=== PATIENT | female | born 1950 | race Two or more races ===

== ENCOUNTER 2017-08-28 14:12 | Inpatient (IN) | payer OTHER, MEDICARE ==
[~2017-08-28] VITALS: Ht 152.4 cm; Wt 89.9 kg
[~2017-08-28 14:12] MED LIST: ASPI81CH7 CHEW; CIPR-9 PO; FURO1TAB62 PO; GABA300C5 PO; HYDR-3516 PO; LEVO150T7 PO; LOSA50TA PO; METO100T9 PO; ZANT150T2 PO
[2017-08-28] MEDS ORDERED: NALOXONE HCL 0.4 MG/ML AMP IV PUSH PRN ×2 (14:45)
[2017-08-28] MEDS ORDERED: cloNIDine HCL 0.1 MG TAB PO PRN ×2 (14:45)
[2017-08-28] MEDS ORDERED: DEXTROSE 50% IN WATER 50 ML VIAL(D50) IV PUSH PRN (14:45)
[2017-08-28] MEDS ORDERED: ACETAMINOPHEN/HYDROcodone 325 MG/5 MG TAB PO PRN ×2 (14:45)
[2017-08-28] MEDS ORDERED: BISACODYL 10 MG SUPP RECTAL PRN ×2 (14:45)
[2017-08-28] MEDS ORDERED: SODIUM CHLORIDE 0.9% FLUSH 10 ML FLUSH IV FLUSH PRN ×2 (14:45)
[2017-08-28] MEDS ORDERED: MORPHINE SULFATE 4 MG/ML INJ IV PUSH PRN ×2 (14:45)
[2017-08-28] MEDS ORDERED: ENOXAPARIN SODIUM 40 MG/0.4 ML SYRINGE SQ SCH ×2 (14:45)
[2017-08-28] MEDS ORDERED: GLUCAGON 1 MG/ML VIAL OTHER PRN ×2 (14:45)
[2017-08-28] MEDS ORDERED: MAGNESIUM HYDROXIDE SUSP 30 ML CUP PO PRN ×2 (14:45)
[2017-08-28] MEDS ORDERED: ACETAMINOPHEN 325 MG TAB PO PRN ×4 (14:45)
[2017-08-28] MEDS ORDERED: ENALAPRILAT 1.25 MG/ML VIAL IV PUSH PRN ×2 (14:45)
[2017-08-28] MEDS ORDERED: hydrALAZINE HCL 20 MG/ML VIAL IV PUSH PRN ×2 (14:45)
[2017-08-28] MEDS ORDERED: SENNOSIDES 8.6 MG TAB PO PRN ×2 (14:45)
[2017-08-28] MEDS ORDERED: LACTULOSE SYRUP 20 GM/30 ML CUP PO PRN ×2 (14:45)
[2017-08-28] MEDS: INSULIN ASPART SUPPLEMENTAL SCALE SQ SCH ×4 (17:00→21:00)
[2017-08-28 17:05] VITALS: BP 118/58; PULSE 90; RESP 18; TEMP 97.9; O2SAT 91
[2017-08-28] MEDS ORDERED: ENOXAPARIN SODIUM 100 MG/ML SYRINGE SQ ONE ×2 (18:30)
--- NOTE | 2017-08-28 18:45 | HHI.HP ---
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 She presents to the emergency department complaining of severe retrosternal pressure since last night radiating to the left upper extremity intermittently associated with shortness of breath and diaphoresis. Also noted irregular heartbeat sensation/ palpitations for the past 2 days. Pain is related to exertion as well as pleuritic with deep inspiration. Symptoms similar to her previous heart attack. States she had a cardiac catheterization a while ago did not have a stent. Patient reports of temporary relief with aspirin, sublingual nitroglycerin and IV morphine states her pain is improving but continues to have palpitation. Telemetry shows sinus tachycardia with PAC. Patient also reports of left ankle swelling and bilateral leg pain. No recent travel, immobilization, DVT or PE. All other systems reviewed negative Review of Systems Except as stated in HPI: all other systems reviewed are Neg Past Family Social History Past Medical History As previously mentioned. Thyroid cancer status post surgery now on thyroid replacement. Past Surgical History As previously mentioned. Hysterectomy Reported Medications Reported Meds & Active Scripts Active Reported Cipro (Ciprofloxacin HCl) 500 Mg Tab 500 Mg PO BID Gabapentin 300 Mg Cap 300 Mg PO DAILY PRN Losartan (Losartan Potassium) Unknown Strength Tab Unknown Dose PO DAILY Lasix (Furosemide) 20 Mg Tab 20 Mg PO DAILY Zantac (Ranitidine HCl) 150 Mg Tab 150 Mg PO HS Metoprolol Succinate ER 24 HR (Metoprolol Succinate) 100 Mg Tab 100 Mg PO DAILY Hydrocodone-Acetaminophen 5-325 mg Tab 1 Tab PO DAILY Levothyroxine (Levothyroxine Sodium) 150 Mcg Tab 150 Mcg PO DAILY Aspirin Children's (Aspirin) 81 Mg Chew 81 Mg CHEW DAILY Allergies: Coded Allergies: albuterol (Verified Allergy, Intermediate, Hives; rapid heart rate, ) Family History She is adopted Social History Does not smoke or drink Physical Exam Vital Signs Blood pressure 129/77 heart rate 95 respiratory 18 oxygen saturation 97% on room air temperature 97.9 Physical Exam GENERAL: This is a well-nourished, well-developed patient, in no apparent distress. SKIN: No rashes, ecchymoses or lesions. Cool and dry. Abrasions in the chin area states it's from her nerves HEAD: Atraumatic. Normocephalic. No temporal or scalp tenderness. EYES: Pupils equal round and reactive. Extraocular motions intact. No scleral icterus. No injection or drainage. ENT: Nose without bleeding, purulent drainage or septal hematoma. Throat without erythema, tonsillar hypertrophy or exudate. Uvula midline. Airway patent. NECK: Trachea midline. No JVD or lymphadenopathy. Supple, nontender, no meningeal signs. CARDIOVASCULAR: Regular rate and rhythm without murmurs, gallops, or rubs. Tender chest wall RESPIRATORY: Clear to auscultation. Breath sounds equal bilaterally. No wheezes , rales, or rhonchi. GASTROINTESTINAL: Abdomen soft, non-tender, nondistended. No guarding. MUSCULOSKELETAL: Extremities without clubbing, cyanosis, or edema. No joint tenderness, effusion, or edema noted. No calf tenderness. Negative Homans sign bilaterally. NEUROLOGICAL: Awake and alert. Cranial nerves II through XII intact. Motor and sensory grossly within normal limits. Five out of 5 muscle strength in all muscle groups. Normal speech. Imaging Chest x-ray image interpreted by me with no acute cardiopulmonary disease Caprini VTE Risk Assessment Caprini VTE Risk Assessment: Mod/High Risk (score >= 2) Caprini Risk Assessment Model Point Value = 1 Point Value = 2 Point Value = 3 Point Value = 5 Age 41-60 Minor surgery BMI > 25 kg/m2 Swollen legs Varicose veins or History of unexplained or recurrent spontaneous Oral contraceptives or hormone replacement Sepsis (< 1 month) Serious lung disease, including pneumonia (< 1 month) Abnormal pulmonary function Acute myocardial infarction Congestive heart failure (< 1 month) History of inflammatory bowel disease Medical patient at bed rest Age 61-74 Arthroscopic surgery Major open surgery (> 45 min) Laparoscopic surgery (> 45 min) Malignancy Confined to bed (> 72 hours) Immobilizing plaster cast Central venous access Age >= 75 History of VTE Family history of VTE Factor V Leiden Prothrombin [id number] Lupus anticoagulant Anticardiolipin antibodies Elevated serum homocysteine Heparin-induced thrombocytopenia Other congenital or acquired thrombophilia Stroke (< 1 month) Elective arthroplasty Hip, pelvis, or leg fracture Acute spinal cord injury (< 1 month) Prophylaxis Regimen Total Risk Factor Score Risk Level Prophylaxis Regimen 0-1 Low Early ambulation 2 Moderate Order ONE of the following: *Sequential Compression Device (SCD) *Heparin 5000 units SQ BID 3-4 Higher Order ONE of the following medications: *Heparin 5000 units SQ TID *Enoxaparin/Lovenox 40 mg SQ daily (WT < 150 kg, CrCl > 30 mL/min) *Enoxaparin/Lovenox 30 mg SQ daily (WT < 150 kg, CrCl > 10-29 mL/min) *Enoxaparin/Lovenox 30 mg SQ BID (WT < 150 kg, CrCl > 30 mL/min) AND/OR *Sequential Compression Device (SCD) 5 or more Highest Order ONE of the following medications: *Heparin 5000 units SQ TID (Preferred with Epidurals) *Enoxaparin/Lovenox 40 mg SQ daily (WT < 150 kg, CrCl > 30 mL/min) *Enoxaparin/Lovenox 30 mg SQ daily (WT < 150 kg, CrCl > 10-29 mL/min) *Enoxaparin/Lovenox 30 mg SQ BID (WT < 150 kg, CrCl > 30 mL/min) AND *Sequential Compression Device (SCD) Assessment and Plan Problem List: (1) Chest pain ICD Code: R07.9 - Chest pain, unspecified Assessment and Plan 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 She presents to the emergency department complaining of severe retrosternal pressure since last night radiating to the left upper extremity intermittently associated with shortness of breath and diaphoresis. Also noted irregular heartbeat sensation/ palpitations for the past 2 days. Symptoms similar to her previous heart attack. States she had a cardiac catheterization a while ago did not have a stent. Patient reports of temporary relief with aspirin, sublingual nitroglycerin and IV morphine states her pain is improving but continues to have palpitation. Telemetry shows sinus tachycardia with PAC. Patient also reports of left ankle swelling and bilateral leg pain. No recent travel, immobilization, DVT or PE. CP and SOB with history of CAD status post [place]. Initial cardiac enzymes unremarkable. EKG is abnormal interpreted by me as sinus tachycardia with probable progression and recurrent PVC. Monitor on telemetry. Trend cardiac enzymes. Continue aspirin, Toprol, sublingual nitroglycerin, Lortab and IV morphine. Also need to rule out for PE. CTA has been ordered. Lovenox therapeutic dose 1 Leg ankle swelling and bilateral leg pain. Obtain Doppler sonogram of the lower extremities UTI which is currently being treated. Continue ciprofloxacin Diabetes mellitus. Monitor fingersticks and sliding scale coverage DVT prophylaxis with Lovenox. Hold mechanical devices pending Doppler sonogram Discussed Condition With Patient Russ Edwards MD Aug 28, 2017 18:45
[2017-08-28 20:00] VITALS: BP 107/59; PULSE 65; RESP 20; TEMP 97.9; O2SAT 96
[2017-08-28 20:15] VITALS: PULSE 85
[2017-08-28] MEDS ORDERED: IOHEXOL 350 MG/ML 10 ML VIAL (for RAD DIAG) IVCONTRAST ONE ×2 (21:31)
--- NOTE | 2017-08-28 21:41 | RADRPT ---
EXAM DATE/TIME: 08/28/2017 20:03 [facility] COMPARISON: No previous studies available for comparison. INDICATIONS : Bilateral leg pain. MEDICAL HISTORY : Carcinoma, thyroid. Hypercholesterolemia. Chronic obstructive pulmonary disease. Diabetes. CVA. Atria l fibrillation. Myocardial infarction. SURGICAL HISTORY : Hysterectomy.Thyroidectomy. ENCOUNTER: Initial ACUITY: 1 day PAIN SCORE: 3/10 LOCATION: Bilateral legs. TECHNIQUE: Venous ultrasound of the left and right leg was performed from the inguinal ligament to the proximal calf. Real-time, color Doppler and spectral tracing, compression and augmentation techniques were us ed. FINDINGS: RIGHT LEG: There is normal compressibility of the deep venous system from the inguinal region to the proximal ca lf. No echogenic clot is seen in the lumen of the common femoral, femoral, popliteal, and posterior tibial veins. There is a normal response of the venous system to proximal and distal augmentation an d respiration. LEFT LEG: There is normal compressibility of the deep venous system from the inguinal region to the proximal ca lf. No echogenic clot is seen in the lumen of the common femoral, femoral, popliteal, and posterior tibial veins. There is a normal response of the venous system to proximal and distal augmentation an d respiration. CONCLUSION: Negative for deep venous thrombosis bilateral lower extremity. Yunior Cruz MD on August 28, 2017 at 21:39 Board Certified Radiologist. This report was verified electronically.
[2017-08-28] MEDS: SODIUM CHLORIDE 0.9% FLUSH 10 ML FLUSH IV FLUSH SCH ×2 (21:45)
[2017-08-28] MEDS: DOCUSATE SODIUM 50 MG/SENNA 8.6 MG TAB PO SCH ×2 (21:45)
[2017-08-28] MEDS: FAMOTIDINE 20 MG TAB PO SCH ×2 (21:45)
[2017-08-28] MEDS: CIPROFLOXACIN 500 MG TAB PO SCH ×2 (21:45)
--- NOTE | 2017-08-28 21:45 | RADRPT ---
EXAM DATE/TIME: 08/28/2017 21:29 [facility] COMPARISON: No previous studies available for comparison. INDICATIONS : Shortness of breath with chest pain. IV CONTRAST: 74 cc Omnipaque 350 (iohexol) IV RADIATION DOSE: 23.11 CTDIvol (mGy) MEDICAL HISTORY : Cardiovascular disease. Diabetes mellitus type 2. Ovarian cancer. Thyroid cancer. CVA. SURGICAL HISTORY : Hysterectomy. ENCOUNTER: Initial ACUITY: 1 day PAIN SCALE: 5/10 LOCATION: Bilateral chest TECHNIQUE: Volumetric scanning of the chest was performed using a pulmonary embolism protocol MIP images were re constructed. Using automated exposure control and adjustment of the mA and/or kV according to patien t size, radiation dose was kept as low as reasonably achievable to obtain optimal diagnostic quality images. DICOM format image data is available electronically for review and comparison. Follow-up recommendations for detected pulmonary nodules are based at a minimum on nodule size and pa tient risk factors according to Fleischner Society Guidelines. FINDINGS: PULMONARY ARTERIES: No filling defects are seen in the pulmonary arteries through the segmental level. LUNGS: There is no consolidation or pneumothorax . No concerning pulmonary nodule is visualized. PLEURAE: There is no pleural thickening or pleural effusion. MEDIASTINUM: There is good visualization of the great vessels of the middle mediastinum. No evidence of mediastin al or hilar adenopathy/mass. CONCLUSION: The study is negative for pulmonary embolism. Yunior Cruz MD on August 28, 2017 at 21:42 Board Certified Radiologist. This report was verified electronically.
[2017-08-28] MEDS: NITROGLYCERIN 0.4 MG SL 25 TABS/BTL SL PRN ×2 (21:51)
[2017-08-28 22:02] VITALS: BP 111/57; PULSE 69; O2SAT 93
[2017-08-29] VITALS (9 sets, daily range): BP systolic 113–150; BP diastolic 55–75; PULSE 66–100; RESP 18–20; TEMP 97.6–98.2; O2SAT 90–96
[2017-08-29] MEDS ORDERED: diphenhydrAMINE HCL 25 MG CAP PO ONE ×2 (00:30)
[2017-08-29] MEDS: ACETAMINOPHEN/HYDROcodone 325 MG/7.5 MG TAB PO PRN ×4 (00:56→21:27)
[2017-08-29 01:13] LABS: TROPONIN I LESS THAN 0.02 NG/ML (0.02-0.05)
[2017-08-29] MEDS: NITROGLYCERIN 0.4 MG SL 25 TABS/BTL SL PRN ×2 (01:50)
[2017-08-29 07:35] LABS: BICARBONATE 27.5 MEQ/L (21.0-32.0); BLOOD UREA NITROGEN 24 MG/DL (7-18); CHLORIDE 101 MEQ/L (98-107); CREATININE 1.18 MG/DL (0.50-1.00); GLOMERULAR FILTRATION RATE 46 ML/MIN (>89); GLUCOSE,RANDOM 97 MG/DL (74-106); MAGNESIUM 2.2 MG/DL (1.5-2.5); SODIUM (NA) 138 MEQ/L (136-145)
[2017-08-29 07:39] LABS: TROPONIN I LESS THAN 0.02 NG/ML (0.02-0.05)
[2017-08-29] MEDS ORDERED: SODIUM CHLOR 0.9% 1000 ML INJ 1,000 ML IV ONE ×2 (08:00)
[2017-08-29] MEDS: INSULIN ASPART SUPPLEMENTAL SCALE SQ SCH ×8 (08:00→21:00)
[2017-08-29] MEDS: DOCUSATE SODIUM 50 MG/SENNA 8.6 MG TAB PO SCH ×4 (09:00→21:00)
[2017-08-29] MEDS: CIPROFLOXACIN 500 MG TAB PO SCH ×4 (09:24→21:23)
[2017-08-29] MEDS: HEPARIN SODIUM - SQ 10,000 UNITS/ML VIAL SQ SCH ×4 (09:24→21:23)
[2017-08-29] MEDS: ASPIRIN 325 MG TAB PO SCH ×2 (09:24)
[2017-08-29] MEDS: LEVOTHYROXINE SODIUM 150 MCG TAB PO SCH ×2 (09:25)
[2017-08-29] MEDS: METOPROLOL SUCCINATE 50 MG EXTENDED RELEASE TAB PO SCH ×2 (09:31)
[2017-08-29] MEDS: SODIUM CHLORIDE 0.9% FLUSH 10 ML FLUSH IV FLUSH SCH ×4 (09:34→21:00)
[2017-08-29] MEDS ORDERED: REGADENOSON INJ 0.4 MG/5 ML SYR ONE ×2 (11:58)
--- NOTE | 2017-08-29 12:40 | EKG ---
Date Performed: 08/28/2017 Time Performed: 18:54:30 PTAGE: 67 years EKG: Sinus rhythm WITH SHORT ND INTERVAL WITH nonconducted PACs and conducted PACs NONSPECIFIC ST & T-WAVE ABNORMALITY BORDERLINE ECG NO PREVIOUS TRACING DOCTOR: Get Jessica Interpretating Date/Time 08/29/2017 12:38:21
--- NOTE | 2017-08-29 12:40 | EKG ---
Date Performed: 08/28/2017 Time Performed: 18:54:30 PTAGE: 67 years EKG: Sinus rhythm WITH SHORT [place] INTERVAL WITH nonconducted PACs and conducted PACs NONSPECIFIC ST & T-WAVE ABNORMALITY BORDERLINE ECG NO PREVIOUS TRACING DOCTOR: Get Jessica Interpretating Date/Time 08/29/2017 12:38:21
--- NOTE | 2017-08-29 12:40 | EKG ---
Date Performed: 08/28/2017 Time Performed: 18:54:30 PTAGE: 67 years EKG: Sinus rhythm WITH SHORT NC INTERVAL WITH nonconducted PACs and conducted PACs NONSPECIFIC ST & T-WAVE ABNORMALITY BORDERLINE ECG NO PREVIOUS TRACING DOCTOR: Get Jessica Interpretating Date/Time 08/29/2017 12:38:21
--- NOTE | 2017-08-29 12:42 | EKG ---
Date Performed: 08/29/2017 Time Performed: 01:04:50 PTAGE: 67 years EKG: Sinus rhythm with PAC(s) as well as nonconducted PACs Possible anterior infarct - age undetermined Abnormal ECG PREVIOUS TRACING : 08/28/2017 18.54 Compared to prior tracing no significant change DOCTOR: Get Jessica Interpretating Date/Time 08/29/2017 12:40:19
--- NOTE | 2017-08-29 13:32 | RADRPT ---
EXAM DATE/TIME: 08/29/2017 10:49 [facility] COMPARISON: No previous studies available for comparison. INDICATIONS : Mid chest pain for one day. Coronary artery disease. DOSE: 25.9 mCi Tc99m Myoview at stress. 8.8 mCi Tc99m Myoview at rest. 0.4 mg Lexiscan STRESS SYMPTOMS: Chest pressure. EJECTION FRACTION: 49% MEDICAL HISTORY : Hypertension. Chronic obstructive pulmonary disease. Myocardial infarction. SURGICAL HISTORY : Thyroidectomy. Hysterectomy. ENCOUNTER: Initial ACUITY: 1 day PAIN SCALE: 2/10 LOCATION: Retrosternal chest pressure TECHNIQUE: The patient underwent pharmacologic stress with infusion of prescribed dose. Continuous ECG tracing was monitored during stress. Gated SPECT imaging was performed after stress and conventional SPECT i maging was performed at rest. The examination was performed on a SPECT/CT scanner, both attenuation and non-corrected datasets were reviewed. FINDINGS: There is minimal redistribution small segment inferior wall towards the apex. There are no fixed defects. The ejection fraction is 49% CONCLUSION: Minimal redistribution small segment inferior wall correlation suggested. RISK CATEGORY: Low (<1% Annual Mortality Rate) Adan Parsons MD FACR on August 29, 2017 at 13:28 Board Certified Radiologist. This report was verified electronically.
--- NOTE | 2017-08-29 13:32 | HHI.PR ---
Subjective Remarks Follow-up chest pain. Continues to have intermittent chest pain. Also admits to anxiety and discussed with RN Objective Vitals Vital Signs Date Time Temp Pulse Resp B/P (MAP) Pulse Ox O2 Delivery O2 Flow Rate FiO2 08/29/17 12:00 97.9 67 18 150/74 (99) 90 08/29/17 08:00 97.7 76 18 122/59 (80) 93 08/29/17 08:00 66 08/29/17 07:00 93 Room Air 08/29/17 04:54 94 08/29/17 04:00 97.6 72 20 125/58 (80) 96 08/29/17 01:49 71 115/62 (79) 94 08/29/17 00:00 98.1 90 20 137/60 (85) 94 08/28/17 22:02 69 111/57 (75) 93 08/28/17 20:45 Room Air 08/28/17 20:15 85 08/28/17 20:00 97.9 65 20 107/59 (75) 96 08/28/17 17:05 97.9 90 18 118/58 (78) 91 I/O 08/28/17 08/28/17 08/28/17 08/29/17 08/29/17 08/29/17 07:00 15:00 23:00 07:00 15:00 23:00 Intake Total 240 ml Balance 240 ml Intake Oral 240 ml # Voids 2 Result Diagram: 08/29/17 0601 Imaging Last Impressions Myocardial Perfusion Scan Nuc Med 08/29/17 0000 Signed Impressions: Service Date/Time: Tuesday, August 29, 2017 10:49 - CONCLUSION: Minimal redistribution small segment inferior wall correlation suggested. RISK CATEGORY: Low (<1%% Annual Mortality Rate) Adan Parsons MD FACR Lower Extremity Ultrasound 08/28/17 0000 Signed Impressions: Service Date/Time: Monday, August 28, 2017 20:03 - CONCLUSION: Negative for deep venous thrombosis bilateral lower extremity. Yunior Cruz MD CT Angiography 08/28/17 0000 Signed Impressions: Service Date/Time: Monday, August 28, 2017 21:29 - CONCLUSION: The study is negative for pulmonary embolism. Yunior Cruz MD Objective Remarks GENERAL: This is a well-nourished, well-developed patient, in no apparent distress. SKIN: No rashes, ecchymoses or lesions. Cool and dry. Abrasions in the chin area states it's from her nerves CARDIOVASCULAR: Regular rate and rhythm without murmurs, gallops, or rubs. Tender chest wall RESPIRATORY: Clear to auscultation. Breath sounds equal bilaterally. No wheezes , rales, or rhonchi. GASTROINTESTINAL: Abdomen soft, non-tender, nondistended. No guarding. MUSCULOSKELETAL: Extremities without clubbing, cyanosis, or edema. No joint tenderness, effusion, or edema noted. No calf tenderness. Negative Homans sign bilaterally. NEUROLOGICAL: Awake and alert. Cranial nerves II through XII intact. Motor and sensory grossly within normal limits. Five out of 5 muscle strength in all muscle groups. Normal speech. 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 She presents to the emergency department complaining of severe retrosternal pressure since last night radiating to the left upper extremity intermittently associated with shortness of breath and diaphoresis. Also noted irregular heartbeat sensation/ palpitations for the past 2 days. Symptoms similar to her previous heart attack. States she had a cardiac catheterization a while ago did not have a stent. Patient reports of temporary relief with aspirin, sublingual nitroglycerin and IV morphine states her pain is improving but continues to have palpitation. Telemetry shows sinus tachycardia with PAC. Patient also reports of left ankle swelling and bilateral leg pain. No recent travel, immobilization, DVT or PE. CP with typical and atypical features with history of CAD status post [place]. Ruled out for [place] by cardiac enzymes for EKG is abnormal interpreted by me as sinus tachycardia with poor R-wave progression and frequent PVC. Stress test is abnormal as noted. Continues to have chest pain start Nitropaste. Continue aspirin, Toprol, sublingual nitroglycerin, Lortab and IV morphine. Consult cardiology Leg ankle swelling and bilateral leg pain. Negative Doppler sonogram of the lower extremities for DVT. Also negative CTA Anxiety. Start BuSpar. UTI which is currently being treated. Continue ciprofloxacin Diabetes mellitus. Monitor fingersticks and sliding scale coverage DVT prophylaxis with Lovenox. Russ Edwards MD Aug 29, 2017 13:32
[2017-08-29] MEDS ORDERED: FAMO20TA2 PO ×2 (13:37)
[2017-08-29] MEDS ORDERED: BUSP10TA PO ×2 (13:37)
--- NOTE | 2017-08-29 13:37 | HHI.DCPOC ---
Discharge Care Plan Diagnosis: (1) Chest pain Your Health Problems Are: Anxiety Difficulty with ADL Exercise Tolerance Goals to Promote Your Health * To prevent worsening of your condition and complications * To maintain your health at the optimal level Directions to Meet Your Goals Take your medications as prescribed Follow your dietary instruction Follow activity as directed Keep your appointments as scheduled Take your immunizations and boosters as scheduled If your symptoms worsen call your PCP, if no PCP go to Urgent Care Center or Emergency Room Smoking is Dangerous to Your Health. Avoid second hand smoke Call the 24-hour hour crisis hotline for domestic abuse at Russ Edwards MD Aug 29, 2017 13:37
--- NOTE | 2017-08-29 13:37 | HHI.DCPOC ---
Discharge Care Plan Diagnosis: (1) Chest pain Your Health Problems Are: Anxiety Difficulty with ADL Exercise Tolerance Goals to Promote Your Health * To prevent worsening of your condition and complications * To maintain your health at the optimal level Directions to Meet Your Goals Take your medications as prescribed Follow your dietary instruction Follow activity as directed Keep your appointments as scheduled Take your immunizations and boosters as scheduled If your symptoms worsen call your PCP, if no PCP go to Urgent Care Center or Emergency Room Smoking is Dangerous to Your Health. Avoid second hand smoke Call the 24-hour hour crisis hotline for domestic abuse at Russ Edwards MD Aug 29, 2017 13:37
--- NOTE | 2017-08-29 13:37 | HHI.DCPOC ---
Discharge Care Plan Diagnosis: (1) Chest pain Your Health Problems Are: Anxiety Difficulty with ADL Exercise Tolerance Goals to Promote Your Health * To prevent worsening of your condition and complications * To maintain your health at the optimal level Directions to Meet Your Goals Take your medications as prescribed Follow your dietary instruction Follow activity as directed Keep your appointments as scheduled Take your immunizations and boosters as scheduled If your symptoms worsen call your PCP, if no PCP go to Urgent Care Center or Emergency Room Smoking is Dangerous to Your Health. Avoid second hand smoke Call the 24-hour hour crisis hotline for domestic abuse at Russ Edwards MD Aug 29, 2017 13:37
[2017-08-29] MEDS: busPIRone HCL 10 MG TAB PO SCH ×4 (14:45→21:23)
--- NOTE | 2017-08-29 17:33 | ECHRPT ---
Indication: CARDIOMYOPATHY CONCLUSIONS Normal left ventricular size. Wall thickness is normal. The left ventricular systolic function is hyperdynamic with an estimated ejection fraction in the ra nge of 65- 70%. Mild mitral valve regurgitation. Mitral annular calcification is present. BP: 125 / 58 HR: Rhythm: Sinus, PVCs MEASUREMENTS (Male / Female) Normal Values Technical Quality:Fair 2D ECHO LV Diastolic Diameter PLAX 5.0 cm 4.2 - 5.9 / 3.9 - 5.3 cm LV Systolic Diameter PLAX 2.0 cm IVS Diastolic Thickness 0.7 cm 0.6 - 1.0 / 0.6 - 0.9 cm LVPW Diastolic Thickness 0.7 cm 0.6 - 1.0 / 0.6 - 0.9 cm LV Relative Wall Thickness 0.3 LVOT Diameter 1.7 cm Aortic Root Diameter 3.5 cm LA Systolic Diameter LX 3.0 cm 3.0 - 4.0 / 2.7 - 3.8 cm M-MODE AV Cusp Separation MM 2.0 cm DOPPLER AV Peak Velocity 112.0 cm/s AV Peak Gradient 5.0 mmHg AV Mean Gradient 2.5 mmHg AV Velocity Time Integral 20.4 cm Mitral E Point Velocity 97.2 cm/s Mitral A Point Velocity 123.0 cm/s Mitral E to A Ratio 0.8 LV E' Lateral Velocity 7.0 cm/s Mitral E to LV E' Lateral Ratio 13.8 LV E' Septal Velocity 7.1 cm/s Mitral E to LV E' Septal Ratio 13.7 PV Peak Velocity 56.4 cm/s PV Peak Gradient 1.3 mmHg FINDINGS LEFT VENTRICLE Normal left ventricular size. Wall thickness is normal. The left ventricular systolic function is hyperdynamic with an estimated ejection fraction in the ra nge of 65- 70%. RIGHT VENTRICLE Normal right ventricular size and systolic function. LEFT ATRIUM The left atrial size is normal. RIGHT ATRIUM The right atrial size is normal. ATRIAL SEPTUM Normal atrial septal thickness without atrial level shunting by limited color doppler interrogation. AORTA The aortic root and proximal ascending aorta are normal in size on limited imaging. MITRAL VALVE Mild mitral valve regurgitation. Mitral annular calcification is present. AORTIC VALVE Trileaflet aortic valve. No aortic valve stenosis or regurgitation. TRICUSPID VALVE Structurally normal tricuspid valve. No tricuspid valve stenosis or regurgitation. PULMONARY VALVE The pulmonary valve is not well visualized. VESSELS The inferior vena cava is normal in size. PERICARDIUM No pericardial effusion. Agustin Yanes-Chris MD (Electronically Signed) Final Date:29 August 2017 17:32
[2017-08-29] MEDS: NITROGLYCERIN 2% OINT 1 GM PACKET TOPICAL SCH ×4 (19:07→22:00)
[2017-08-29] MEDS ORDERED: TEMAZEPAM 7.5 MG CAP PO ONE ×2 (21:15)
[2017-08-29] MEDS: FAMOTIDINE 20 MG TAB PO SCH ×2 (21:23)
--- NOTE | 2017-08-29 22:29 | MB ---
cc: JENNY MARTINEZ DATE OF CONSULTATION 08/29/2017 DATE OF 1950 REASON FOR CONSULTATION Low-risk myocardial perfusion study. HISTORY OF THE PRESENT ILLNESS 67-year-old female with past medical history significant for hypertension, diabetes, COPD, rheumatoid arthritis, HI in 2005 without any intervention done, stroke in 2006 that presented to the hospital for evaluation of atypical chest pain. The patient reports that she is having constant chest discomfort with associated palpitations. The pain is related to exertion as well as exacerbated with deep inspiration. The patient had a full cardiac workup during this admission including cardiac troponins which were negative x3, and also she had a myocardial perfusion study which showed minimal distribution small segment in the inferior wall which are risk category being low. Thus cardiology has been consulted for further management and evaluation. PAST MEDICAL HISTORY 1. Cancer status post surgery. 2. Coronary artery disease. 3. Hypertension. 4. Diabetes. 5. Stroke. 6. Chronic obstructive pulmonary disease. 7. Rheumatoid arthritis. 8. Obese. PAST SURGICAL HISTORY Hysterectomy. MEDICATIONS Cardiac home medications: 1. Aspirin. 2. Lasix. 3. Losartan. 4. Metoprolol. ALLERGIES NO KNOWN DRUG ALLERGIES. FAMILY HISTORY Noncontributory. SOCIAL HISTORY Denies illicit drug use, smoking or alcohol use. PHYSICAL EXAMINATION VITAL SIGNS: Temperature 98.2, respiratory rate 18, heart rate 67, blood pressure 113/55, O2 sat 92% room air. GENERAL: She is awake, alert, oriented x3 in no acute distress. NECK: No JVD. No carotid bruits. HEART: Regular rate and rhythm. No murmurs, rubs or gallops. LUNGS: Clear to auscultation bilaterally. No wheezes, rhonchi or rales. ABDOMEN: Soft, nontender, nondistended. Positive bowel sounds. Obese. EXTREMITIES: No cyanosis or edema. Pulses throughout. LABORATORY DATA CBC, hemoglobin 14, hematocrit 42, platelet count 257. INR 1.0. Chemistries, sodium 138, potassium 3.7, BUN 24, creatinine 1.1. Troponin less than 0.02 x 3. IMAGING STUDIES CTA negative for PE. Lower extremity ultrasound negative for DVT. Echocardiogram normal LV systolic function. Estimated ejection fraction of 60% . No wall motion abnormalities. EKG sinus rhythm with PACs. Nonspecific ST changes. ASSESSMENT/PLAN 67-year-old female with cardiac risk factors that include hypertension, hyperlipidemia, history of stroke that presents with atypical chest pain, pleuritic. She has cardiac enzymes that have been negative x3 and a lower risk myocardial perfusion study. Currently she remains afebrile and hemodynamically, stable and denies chest discomfort. Unfortunately she is new to [facility] and does not have follow with a executive personal assistant. Stress results low risk with possible mild reversible defect with can also be artifact. At this point I would not recommend any invasive cardiac workup or left heart cath given her low risk stress test. I would rather optimize her medical management, continue aspirin, beta blockers, ARB. Start on long-acting nitrate such as Imdur 30 mg p.o. daily and follow up with cardiology upon discharge. Thank you for the opportunity to take part in the care of this patient. We will be available on a p.r.n. basis for any other questions or concerns. MD TOÑO Michele/HARPREET /5:45 PM /10:16 PM MARY
--- NOTE | 2017-08-29 22:29 | MB ---
cc: JENNY MARTINEZ DATE OF CONSULTATION 08/29/2017 DATE OF 1950 REASON FOR CONSULTATION Low-risk myocardial perfusion study. HISTORY OF THE PRESENT ILLNESS 67-year-old female with past medical history significant for hypertension, diabetes, COPD, rheumatoid arthritis, [place] in 2005 without any intervention done, stroke in 2006 that presented to the hospital for evaluation of atypical chest pain. The patient reports that she is having constant chest discomfort with associated palpitations. The pain is related to exertion as well as exacerbated with deep inspiration. The patient had a full cardiac workup during this admission including cardiac troponins which were negative x3, and also she had a myocardial perfusion study which showed minimal distribution small segment in the inferior wall which are risk category being low. Thus cardiology has been consulted for further management and evaluation. PAST MEDICAL HISTORY 1. Cancer status post surgery. 2. Coronary artery disease. 3. Hypertension. 4. Diabetes. 5. Stroke. 6. Chronic obstructive pulmonary disease. 7. Rheumatoid arthritis. 8. Obese. PAST SURGICAL HISTORY Hysterectomy. MEDICATIONS Cardiac home medications: 1. Aspirin. 2. Lasix. 3. Losartan. 4. Metoprolol. ALLERGIES NO KNOWN DRUG ALLERGIES. FAMILY HISTORY Noncontributory. SOCIAL HISTORY Denies illicit drug use, smoking or alcohol use. PHYSICAL EXAMINATION VITAL SIGNS: Temperature 98.2, respiratory rate 18, heart rate 67, blood pressure 113/55, O2 sat 92% room air. GENERAL: She is awake, alert, oriented x3 in no acute distress. NECK: No JVD. No carotid bruits. HEART: Regular rate and rhythm. No murmurs, rubs or gallops. LUNGS: Clear to auscultation bilaterally. No wheezes, rhonchi or rales. ABDOMEN: Soft, nontender, nondistended. Positive bowel sounds. Obese. EXTREMITIES: No cyanosis or edema. Pulses throughout. LABORATORY DATA CBC, hemoglobin 14, hematocrit 42, platelet count 257. INR 1.0. Chemistries, sodium 138, potassium 3.7, BUN 24, creatinine 1.1. Troponin less than 0.02 x 3. IMAGING STUDIES CTA negative for PE. Lower extremity ultrasound negative for DVT. Echocardiogram normal LV systolic function. Estimated ejection fraction of 60% . No wall motion abnormalities. EKG sinus rhythm with PACs. Nonspecific ST changes. ASSESSMENT/PLAN 67-year-old female with cardiac risk factors that include hypertension, hyperlipidemia, history of stroke that presents with atypical chest pain, pleuritic. She has cardiac enzymes that have been negative x3 and a lower risk myocardial perfusion study. Currently she remains afebrile and hemodynamically, stable and denies chest discomfort. Unfortunately she is new to [facility] and does not have follow with a spinning machine operator. Stress results low risk with possible mild reversible defect with can also be artifact. At this point I would not recommend any invasive cardiac workup or left heart cath given her low risk stress test. I would rather optimize her medical management, continue aspirin, beta blockers, ARB. Start on long-acting nitrate such as Imdur 30 mg p.o. daily and follow up with cardiology upon discharge. Thank you for the opportunity to take part in the care of this patient. We will be available on a p.r.n. basis for any other questions or concerns. MD TOÑO Michele/HARPREET /5:45 PM /10:16 PM MARY
[2017-08-30] VITALS (10 sets, daily range): BP systolic 114–170; BP diastolic 57–82; PULSE 67–105; RESP 18–20; TEMP 97.2–98.1; O2SAT 92–95
[2017-08-30] MEDS: NITROGLYCERIN 2% OINT 1 GM PACKET TOPICAL SCH ×2 (05:36)
[2017-08-30] MEDS: ISOSORBIDE MONONITRATE 30 MG TAB PO SCH ×2 (05:36)
[2017-08-30] MEDS ORDERED: ISOS30TA3 PO ×2 (07:38)
[2017-08-30] MEDS: INSULIN ASPART SUPPLEMENTAL SCALE SQ SCH ×8 (07:57→21:00)
[2017-08-30 08:04] LABS: BICARBONATE 25.7 MEQ/L (21.0-32.0); CALCIUM 7.5 MG/DL (8.5-10.1); CREATININE 1.06 MG/DL (0.50-1.00); MAGNESIUM 2.1 MG/DL (1.5-2.5)
[2017-08-30 08:45] LABS: ALBUMIN 3.3 GM/DL (3.4-5.0); DIRECT BILIRUBIN ADULT 0.1 MG/DL (0.0-0.2)
[2017-08-30 08:47] LABS: CHOLESTEROL/ HDL RATIO 6.86 RATIO; HDL CHOLESTEROL 36.1 MG/DL (40.0-60.0); INDIRECT BILIRUBIN 0.1 MG/DL (0.0-0.8); TOTAL BILIRUBIN ADULT 0.2 MG/DL (0.2-1.0); TOTAL PROTEIN 7.3 GM/DL (6.4-8.2)
[2017-08-30] MEDS: LEVOTHYROXINE SODIUM 150 MCG TAB PO SCH ×2 (09:45)
[2017-08-30] MEDS: busPIRone HCL 10 MG TAB PO SCH ×4 (09:45→21:10)
[2017-08-30] MEDS: HEPARIN SODIUM - SQ 10,000 UNITS/ML VIAL SQ SCH ×4 (09:45→21:10)
[2017-08-30] MEDS: CIPROFLOXACIN 500 MG TAB PO SCH ×4 (09:45→21:10)
[2017-08-30] MEDS: DOCUSATE SODIUM 50 MG/SENNA 8.6 MG TAB PO SCH ×2 (09:45)
[2017-08-30] MEDS: ASPIRIN 325 MG TAB PO SCH ×2 (09:46)
[2017-08-30] MEDS: SODIUM CHLORIDE 0.9% FLUSH 10 ML FLUSH IV FLUSH SCH ×4 (09:52→21:00)
[2017-08-30] MEDS: FUROSEMIDE 20 MG TAB PO SCH ×2 (09:52)
[2017-08-30] MEDS: METOPROLOL SUCCINATE 50 MG EXTENDED RELEASE TAB PO SCH ×2 (09:52)
[2017-08-30] MEDS ORDERED: ATOR40TA16 PO ×2 (11:49)
[2017-08-30] MEDS ORDERED: POTA-243 PO ×2 (11:49)
[2017-08-30] MEDS ORDERED: TEMA7.5C9 PO ×2 (11:49)
--- NOTE | 2017-08-30 11:53 | HHI.DS ---
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 She presents to the emergency department complaining of severe retrosternal pressure since last night radiating to the left upper extremity intermittently associated with shortness of breath and diaphoresis. Also noted irregular heartbeat sensation/ palpitations for the past 2 days. Pain is related to exertion as well as pleuritic with deep inspiration. Symptoms similar to her previous heart attack. States she had a cardiac catheterization a while ago did not have a stent. Patient reports of temporary relief with aspirin, sublingual nitroglycerin and IV morphine states her pain is improving but continues to have palpitation. Telemetry shows sinus tachycardia with PAC. Patient also reports of left ankle swelling and bilateral leg pain. No recent travel, immobilization, DVT or PE. All other systems reviewed negative CBC/BMP: 08/30/17 0655 Significant Findings Laboratory Tests Test 08/29/17 00:28 08/29/17 06:01 08/30/17 06:55 Troponin I LESS THAN 0.02 NG/ML LESS THAN 0.02 NG/ML Blood Urea Nitrogen 24 MG/DL (7-18) 22 MG/DL (7-18) Creatinine 1.18 MG/DL (0.50-1.00) 1.06 MG/DL (0.50-1.00) Calcium Level 8.0 MG/DL (8.5-10.1) 7.5 MG/DL (8.5-10.1) Estimat Glomerular Filtration Rate 46 ML/MIN (>89) 52 ML/MIN (>89) Random Glucose 109 MG/DL (74-106) Albumin 3.3 GM/DL (3.4-5.0) Triglycerides Level 388 MG/DL (42-150) Cholesterol Level 248 MG/DL (120-200) LDL Cholesterol 134 MG/DL (0-99) HDL Cholesterol 36.1 MG/DL (40.0-60.0) Imaging Last Impressions Myocardial Perfusion Scan Nuc Med 08/29/17 0000 Signed Impressions: Service Date/Time: Tuesday, August 29, 2017 10:49 - CONCLUSION: Minimal redistribution small segment inferior wall correlation suggested. RISK CATEGORY: Low (<1%% Annual Mortality Rate) Adan Parsons MD FACR Lower Extremity Ultrasound 08/28/17 0000 Signed Impressions: Service Date/Time: Monday, August 28, 2017 20:03 - CONCLUSION: Negative for deep venous thrombosis bilateral lower extremity. Yunior Cruz MD CT Angiography 08/28/17 0000 Signed Impressions: Service Date/Time: Monday, August 28, 2017 21:29 - CONCLUSION: The study is negative for pulmonary embolism. Yunior Cruz MD PE at Discharge GENERAL: This is a well-nourished, well-developed patient, in no apparent distress. SKIN: No rashes, ecchymoses or lesions. Cool and dry. Abrasions in the chin area states it's from her nerves CARDIOVASCULAR: Regular rate and rhythm without murmurs, gallops, or rubs. Tender chest wall RESPIRATORY: Clear to auscultation. Breath sounds equal bilaterally. No wheezes , rales, or rhonchi. GASTROINTESTINAL: Abdomen soft, non-tender, nondistended. No guarding. MUSCULOSKELETAL: Extremities without clubbing, cyanosis, or edema. No joint tenderness, effusion, or edema noted. No calf tenderness. Negative Homans sign bilaterally. NEUROLOGICAL: Awake and alert. Cranial nerves II through XII intact. Motor and sensory grossly within normal limits. Five out of 5 muscle strength in all muscle groups. Normal speech. 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 She presents to the emergency department complaining of severe retrosternal pressure since last night radiating to the left upper extremity intermittently associated with shortness of breath and diaphoresis. Also noted irregular heartbeat sensation/ palpitations for the past 2 days. Symptoms similar to her previous heart attack. States she had a cardiac catheterization a while ago did not have a stent. Patient reports of temporary relief with aspirin, sublingual nitroglycerin and IV morphine states her pain is improving but continues to have palpitation. Patient also reports of left ankle swelling and bilateral leg pain. No recent travel, immobilization, DVT or PE. CP with typical and atypical features with history of CAD status post [place]. Ruled out for [place] by cardiac enzymes. Stress test is abnormal as noted. Symptoms resolved. Cardiology recommended medical management with risk factor modification. Continue aspirin, Toprol, sublingual nitroglycerin and statin New onset A. fib with RVR. High [id number] score of 5. Unremarkable TSH and Echocardiogram. We will increase Toprol to 150 mg daily. Cardizem drip keep heart rate less than 100 . Agrees with Eliquis Leg ankle swelling and bilateral leg pain. Negative Doppler sonogram of the lower extremities for DVT. Also negative CTA Anxiety. Continue BuSpar. UTI which is currently being treated. Continue ciprofloxacin Diabetes mellitus. Monitor fingersticks and sliding scale coverage Insomnia. Patient requesting Restoril aware of addicting potential Passed walk test Patient also requesting a home health care PT DVT prophylaxis with Eliquis Pt Condition on Discharge: Stable Discharge Disposition: Discharge Home Discharge Instructions DIET: Follow Instructions for: Heart Healthy Diet, Diabetic Diet Activities you can perform: Regular-No Restrictions Activities to Avoid: Driving Follow up Referrals: Cardiology - 1 Week PCP Follow-up - 2-3 Days New Orders: BASIC METABOLIC PROF - 1 Week New Medications: Oxygen (O2) (Oxygen (O2)) Device LITER JEANETTE.CANULA CONTINUOUS for Prevent Hypoxemia, #2 Oxygen Concentrator Portable Gaseous 2 L/min via Nasal Canula Continuous For 99 months Apixaban (Eliquis) 5 Mg Tab 5 MG PO BID for Prevent Blood Clot, #60 TAB Atorvastatin (Atorvastatin) 40 Mg Tab 40 MG PO HS for Cholesterol Management, #30 TAB Buspirone (Buspirone) 10 Mg Tab 10 MG PO Q12HR for Control Anxiety, #60 TAB Carboxymethylcellulos-Hypromellose Opth Gel (Genteal Severe Opth Gel) 0.25-0.3% Gel 2 DROP EACH EYE Q6H PRN for DRY EYE, #1 TUBE Famotidine (Famotidine) 20 Mg Tab 20 MG PO HS for Manage Heartburn, #30 TAB Isosorbide Mononitrate ER (Isosorbide Mononitrate ER) 30 Mg Shantal 30 MG PO DAILY@07 for chest pain, #30 TAB Metoprolol Succinate ER 24 HR (Metoprolol Succinate ER 24 HR) 50 Mg Tab 150 MG PO DAILY for Regulate Heart Beat, #90 TAB Potassium Chloride ER (Klor-Con 10) 10 Meq Tab 30 MEQ PO DAILY for Electrolyte Replacement, #6 TAB Temazepam (Restoril) 7.5 Mg Cap 7.5 MG PO HS PRN for insomnia, #5 CAP Continued Medications: Aspirin (Aspirin Children's) 81 Mg Chew 81 MG CHEW DAILY, TAB 0 Refills Ciprofloxacin (Cipro) 500 Mg Tab 500 MG PO BID for Infection, TAB 0 Refills Furosemide (Lasix) 20 Mg Tab 20 MG PO DAILY, #30 TAB 0 Refills Gabapentin (Gabapentin) 300 Mg Cap 300 MG PO DAILY PRN for PAIN SCALE 1 TO 10, #60 CAP 0 Refills Hydrocodone-Acetaminophen (Hydrocodone-Acetaminophen) 5-325 mg Tab 1 TAB PO DAILY, TAB 0 Refills Levothyroxine (Levothyroxine) 150 Mcg Tab 150 MCG PO DAILY for Thyroid, #30 TAB 0 Refills Losartan (Losartan) Unknown Strength Tab Unknown Dose PO DAILY for Blood Pressure Management, #30 TAB 0 Refills Discontinued Medications: Ranitidine (Zantac) 150 Mg Tab 150 MG PO HS for Reduce Stomach Acid, #30 TAB 0 Refills Russ Edwards MD Aug 30, 2017 11:53
--- NOTE | 2017-08-30 11:56 | HHI.FF ---
Face to Face Verification Diagnosis: (1) Chest pain Physical Therapy Order: Evaluate and Treat, Improve ambulation, Strength and gait training Home Health Nursing Order: Medical education Signs/symptoms of disease process Oxygen administration education Nursing assessment with vital signs I have seen patient Noni Martin on 08/30/17. My clinical findings support the need for the requested home health care services because: Deconditioned w/ increased weakness I certify that my clinical findings support that this patient is homebound because: Unsafe to leave home unassisted Russ Edwards MD Aug 30, 2017 11:56
[2017-08-30] MEDS ORDERED: OXYGENDME NAS.CANULA ×2 (11:57)
[2017-08-30] MEDS ORDERED: GENT0.3G EACH EYE ×2 (11:59)
[2017-08-30] MEDS ORDERED: POTASSIUM CHLORIDE 10 MEQ CONTROLLED RELEASE TAB PO ONE ×2 (13:00)
[2017-08-30] MEDS: ONDANSETRON HCL 4 MG/2 ML VIAL IVP PRN ×4 (15:52→21:09)
[2017-08-30] MEDS: HYPROMELLOSE 0.3 % OPTH GEL 10 GM (0.34 FL OZ) TUBE EACH EYE PRN ×2 (15:52)
--- NOTE | 2017-08-30 16:52 | HHI.PR ---
Subjective Remarks Late entry. Patient was supposed to be discharged. Please see discharge summary. Patient later developed nausea, vomiting and diarrhea and discharge has been held. Follow-up chest pain. No more chest pain. Discussed with RN Objective Vitals Vital Signs Date Time Temp Pulse Resp B/P (MAP) Pulse Ox O2 Delivery O2 Flow Rate FiO2 08/30/17 12:48 94 21 08/30/17 12:00 97.2 86 18 126/58 (80) 92 08/30/17 08:00 97.5 67 18 114/57 (76) 92 08/30/17 04:00 Room Air 08/30/17 04:00 97.8 76 20 118/64 (82) 95 08/30/17 00:00 Room Air 08/30/17 00:00 97.6 77 20 128/82 (97) 94 08/29/17 20:05 94 08/29/17 20:00 97.6 77 20 132/75 (94) 92 08/29/17 20:00 Room Air 08/29/17 20:00 86 I/O 08/29/17 08/29/17 08/29/17 08/30/17 08/30/17 08/30/17 07:00 15:00 23:00 07:00 15:00 23:00 Intake Total 240 ml 570 ml 340 ml Balance 240 ml 570 ml 340 ml Intake Oral 240 ml 480 ml 340 ml IV Total 90 ml # Voids 2 3 3 Result Diagram: 08/30/17 0655 Objective Remarks GENERAL: This is a well-nourished, well-developed patient, in no apparent distress. SKIN: No rashes, ecchymoses or lesions. Cool and dry. Abrasions in the chin area states it's from her nerves CARDIOVASCULAR: Regular rate and rhythm without murmurs, gallops, or rubs. Tender chest wall RESPIRATORY: Clear to auscultation. Breath sounds equal bilaterally. No wheezes , rales, or rhonchi. GASTROINTESTINAL: Abdomen soft, non-tender, nondistended. No guarding. MUSCULOSKELETAL: Extremities without clubbing, cyanosis, or edema. No joint tenderness, effusion, or edema noted. No calf tenderness. Negative Homans sign bilaterally. NEUROLOGICAL: Awake and alert. Cranial nerves II through XII intact. Motor and sensory grossly within normal limits. Five out of 5 muscle strength in all muscle groups. Normal speech. 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 She presents to the emergency department complaining of severe retrosternal pressure since last night radiating to the left upper extremity intermittently associated with shortness of breath and diaphoresis. Also noted irregular heartbeat sensation/ palpitations for the past 2 days. Symptoms similar to her previous heart attack. States she had a cardiac catheterization a while ago did not have a stent. Patient reports of temporary relief with aspirin, sublingual nitroglycerin and IV morphine states her pain is improving but continues to have palpitation. Telemetry shows sinus tachycardia with PAC. Patient also reports of left ankle swelling and bilateral leg pain. No recent travel, immobilization, DVT or PE. CP with typical and atypical features with history of CAD status post [place]. Ruled out for [place] by cardiac enzymes for EKG is abnormal interpreted by me as sinus tachycardia with poor R-wave progression and frequent PVC. Stress test is abnormal as noted. Symptoms resolved. Cardiology recommended medical management with risk factor modification. Continue aspirin, Toprol, sublingual nitroglycerin and statin Arrhythmia. Telemetry shows NSVT or paroxysmal A. fib. Electrolyte replacement. Check TSH. Continue beta chris. Echocardiogram unremarkable Leg ankle swelling and bilateral leg pain. Negative Doppler sonogram of the lower extremities for DVT. Also negative CTA Anxiety. Continue BuSpar. UTI which is currently being treated. Continue ciprofloxacin Diabetes mellitus. Monitor fingersticks and sliding scale coverage Insomnia. Patient requesting Restoril aware of addicting potential Pending walk test Patient also requesting a home health care PT DVT prophylaxis with Lovenox. Problem Qualifiers (1) Chest pain: Qualified Codes: R07.9 - Chest pain, unspecified Russ Edwards MD Aug 30, 2017 16:52
[2017-08-30] MEDS: LACTOBACILLUS ACIDOPHILUS TAB PO SCH ×2 (17:40)
[2017-08-30] MEDS: SODIUM CHLOR 0.9% 1000 ML INJ 1,000 ML IV SCH ×2 (17:41)
[2017-08-30] MEDS: ACETAMINOPHEN/HYDROcodone 325 MG/7.5 MG TAB PO PRN ×2 (21:09)
[2017-08-30] MEDS: ATORVASTATIN 40 MG TAB PO SCH ×2 (21:10)
[2017-08-30] MEDS: FAMOTIDINE 20 MG TAB PO SCH ×2 (21:10)
[2017-08-31] VITALS (10 sets, daily range): BP systolic 95–143; BP diastolic 56–98; PULSE 60–145; RESP 16–20; TEMP 97.2–98.5; O2SAT 92–96
[2017-08-31] MEDS: SODIUM CHLOR 0.9% 1000 ML INJ 1,000 ML IV SCH ×4 (04:55→16:27)
[2017-08-31] MEDS: HYPROMELLOSE 0.3 % OPTH GEL 10 GM (0.34 FL OZ) TUBE EACH EYE PRN ×2 (05:51)
[2017-08-31] MEDS: ISOSORBIDE MONONITRATE 30 MG TAB PO SCH ×2 (06:40)
[2017-08-31 07:42] LABS: AUTOMATED NEUTROPHIL # 6.3 TH/MM3 (1.8-7.7); BASOPHIL % 0.3 % (0.0-2.0); EOSINOPHIL # 0.5 TH/MM3 (0-0.4); EOSINOPHIL % 5.8 % (0.0-4.0); HEMATOCRIT 40.3 % (35.0-46.0); HEMOGLOBIN 13.4 GM/DL (11.6-15.3); LYMPHOCYTE # 1.8 TH/MM3 (1.0-4.8); MEAN CORPUSCULAR HEMOGLOBIN 30.2 PG (27.0-34.0); MEAN CORPUSCULAR HGB CONC 33.2 % (32.0-36.0); MEAN PLATELET VOLUME 8.4 FL (7.0-11.0); MONO % 5.3 % (0.0-8.0); MONOCYTE # 0.5 TH/MM3 (0-0.9); NEUT % 68.6 % (16.0-70.0); PLATELET COUNT 225 TH/MM3 (150-450); RED BLOOD COUNT 4.43 MIL/MM3 (4.00-5.30); RED CELL DISTRIBUTION WIDTH 16.9 % (11.6-17.2); WHITE BLOOD COUNT 9.2 TH/MM3 (4.0-11.0)
[2017-08-31] MEDS: INSULIN ASPART SUPPLEMENTAL SCALE SQ SCH ×8 (08:00→21:00)
[2017-08-31 08:18] LABS: BICARBONATE 24.9 MEQ/L (21.0-32.0); CALCIUM 7.9 MG/DL (8.5-10.1); CREATININE 1.13 MG/DL (0.50-1.00); MAGNESIUM 2.2 MG/DL (1.5-2.5)
[2017-08-31] MEDS: CIPROFLOXACIN 500 MG TAB PO SCH ×4 (09:34→20:41)
[2017-08-31] MEDS: ASPIRIN 325 MG TAB PO SCH ×2 (09:34)
[2017-08-31] MEDS: HEPARIN SODIUM - SQ 10,000 UNITS/ML VIAL SQ SCH ×2 (09:34)
[2017-08-31] MEDS: LACTOBACILLUS ACIDOPHILUS TAB PO SCH ×6 (09:34→16:22)
[2017-08-31] MEDS: LEVOTHYROXINE SODIUM 150 MCG TAB PO SCH ×2 (09:34)
[2017-08-31] MEDS: FUROSEMIDE 20 MG TAB PO SCH ×2 (09:34)
[2017-08-31] MEDS: METOPROLOL SUCCINATE 50 MG EXTENDED RELEASE TAB PO SCH ×2 (09:34)
[2017-08-31] MEDS: ACETAMINOPHEN/HYDROcodone 325 MG/7.5 MG TAB PO PRN ×4 (10:52→20:40)
[2017-08-31] MEDS ORDERED: DILTIAZEM INJ 125 MG in SODIUM CHLORIDE 0.9% INJ 100 ML IV PRN ×4 (11:15)
[2017-08-31] MEDS: busPIRone HCL 10 MG TAB PO SCH ×4 (12:01→20:41)
[2017-08-31] MEDS ORDERED: METOPROLOL TARTRATE 50 MG TAB PO ONE ×2 (12:40)
--- NOTE | 2017-08-31 13:44 | HHI.PR ---
Subjective Remarks Follow-up A. fib. Called by RN secondary to A. fib RVR. Patient denies chest pain and palpitations. Discharge held yesterday because of nausea, vomiting and diarrhea which have resolved. Patient refused IV fluids Objective Vitals Vital Signs Date Time Temp Pulse Resp B/P (MAP) Pulse Ox O2 Delivery O2 Flow Rate FiO2 08/31/17 12:49 89 116/76 (89) 08/31/17 12:00 145 137/90 (106) 08/31/17 12:00 145 137/90 08/31/17 08:00 93 Room Air 21 08/31/17 08:00 118 08/31/17 08:00 98.1 81 18 139/69 (92) 95 08/31/17 04:02 Room Air 08/31/17 04:00 97.2 60 16 143/65 (91) 93 08/31/17 01:53 Room Air 08/31/17 00:00 97.8 76 18 118/56 (76) 96 08/30/17 22:17 105 08/30/17 21:00 137/82 (100) 08/30/17 20:00 97.9 74 18 170/76 (107) 94 08/30/17 20:00 Room Air 08/30/17 19:51 21 08/30/17 16:00 98.1 85 20 125/59 (81) 92 I/O 08/30/17 08/30/17 08/30/17 08/31/17 08/31/17 08/31/17 07:00 15:00 23:00 07:00 15:00 23:00 Intake Total 340 ml 1245 ml 440 ml Output Total 1200 ml Balance 340 ml 45 ml 440 ml Intake Oral 340 ml 960 ml 440 ml IV Total 285 ml Output Urine Total 1200 ml # Voids 3 3 # Bowel Movements 3 2 Result Diagram: 08/31/17 0625 08/31/17 06 Imaging Last Impressions Myocardial Perfusion Scan Nuc Med 08/29/17 0000 Signed Impressions: Service Date/Time: Tuesday, August 29, 2017 10:49 - CONCLUSION: Minimal redistribution small segment inferior wall correlation suggested. RISK CATEGORY: Low (<1%% Annual Mortality Rate) Adan Parsons MD FACR Lower Extremity Ultrasound 08/28/17 0000 Signed Impressions: Service Date/Time: Monday, August 28, 2017 20:03 - CONCLUSION: Negative for deep venous thrombosis bilateral lower extremity. Yunior Cruz MD CT Angiography 08/28/17 0000 Signed Impressions: Service Date/Time: Monday, August 28, 2017 21:29 - CONCLUSION: The study is negative for pulmonary embolism. Yunior Cruz MD Objective Remarks GENERAL: This is a well-nourished, well-developed patient, in no apparent distress. SKIN: No rashes, ecchymoses or lesions. Cool and dry. Abrasions in the chin area states it's from her nerves CARDIOVASCULAR: Irregularly irregular without murmurs, gallops, or rubs. Tender chest wall RESPIRATORY: Clear to auscultation. Breath sounds equal bilaterally. No wheezes , rales, or rhonchi. GASTROINTESTINAL: Abdomen soft, non-tender, nondistended. No guarding. MUSCULOSKELETAL: Extremities without clubbing, cyanosis, or edema. No joint tenderness, effusion, or edema noted. No calf tenderness. Negative Homans sign bilaterally. NEUROLOGICAL: Awake and alert. Cranial nerves II through XII intact. Motor and sensory grossly within normal limits. Five out of 5 muscle strength in all muscle groups. Normal speech. 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 She presents to the emergency department complaining of severe retrosternal pressure since last night radiating to the left upper extremity intermittently associated with shortness of breath and diaphoresis. Also noted irregular heartbeat sensation/ palpitations for the past 2 days. Symptoms similar to her previous heart attack. States she had a cardiac catheterization a while ago did not have a stent. Patient reports of temporary relief with aspirin, sublingual nitroglycerin and IV morphine states her pain is improving but continues to have palpitation. Patient also reports of left ankle swelling and bilateral leg pain. No recent travel, immobilization, DVT or PE. CP with typical and atypical features with history of CAD status post [place]. Ruled out for [place] by cardiac enzymes. Stress test is abnormal as noted. Symptoms resolved. Cardiology recommended medical management with risk factor modification. Continue aspirin, Toprol, sublingual nitroglycerin and statin New onset A. fib with RVR. High [id number] score of 5. Unremarkable TSH and Echocardiogram. We will increase Toprol to 150 mg daily. Cardizem drip keep heart rate less than 100 . Agrees with Eliquis Leg ankle swelling and bilateral leg pain. Negative Doppler sonogram of the lower extremities for DVT. Also negative CTA. Cardiology has been paged Anxiety. Continue BuSpar. UTI which is currently being treated. Continue ciprofloxacin Diabetes mellitus. Monitor fingersticks and sliding scale coverage Insomnia. Patient requesting Restoril aware of addicting potential Passed walk test Patient also requesting a home health care PT DVT prophylaxis with Eliquis Discharge Planning Discharge when off Cardizem drip Problem Qualifiers (1) Chest pain: Qualified Codes: R07.9 - Chest pain, unspecified Russ Edwards MD Aug 31, 2017 13:44
[2017-08-31] MEDS: APIXABAN 5 MG TABLET PO SCH ×4 (16:22→20:41)
[2017-08-31] MEDS: SODIUM CHLORIDE 0.9% FLUSH 10 ML FLUSH IV FLUSH SCH ×4 (16:29→20:42)
[2017-08-31] MEDS ORDERED: METO50TA11 PO ×2 (16:34)
[2017-08-31] MEDS ORDERED: APIX5TAB PO ×2 (16:34)
[2017-08-31] MEDS ORDERED: POTA-243 PO ×2 (16:34)
[2017-08-31] MEDS: ATORVASTATIN 40 MG TAB PO SCH ×2 (20:41)
[2017-08-31] MEDS: FAMOTIDINE 20 MG TAB PO SCH ×2 (20:41)
[2017-09-01] VITALS (8 sets, daily range): BP systolic 82–141; BP diastolic 54–75; PULSE 66–86; RESP 13–21; TEMP 97.2–99.1; O2SAT 92–95
[2017-09-01] MEDS: SODIUM CHLOR 0.9% 1000 ML INJ 1,000 ML IV SCH ×4 (04:45→21:37)
[2017-09-01] MEDS: ISOSORBIDE MONONITRATE 30 MG TAB PO SCH ×2 (06:13)
[2017-09-01] MEDS: INSULIN ASPART SUPPLEMENTAL SCALE SQ SCH ×8 (08:00→21:00)
--- NOTE | 2017-09-01 08:10 | HHI.PR ---
Subjective Remarks resting comfortably with no distress. however says that she felt lightheaded and ' almost fell'. denies chesty pain or sob. d/w the RN. Objective Vitals Vital Signs Date Time Temp Pulse Resp B/P (MAP) Pulse Ox O2 Delivery O2 Flow Rate FiO2 09/01/17 04:00 97.6 82 18 131/63 (85) 95 09/01/17 03:48 Room Air 09/01/17 00:00 97.2 75 18 99/54 (69) 92 09/01/17 00:00 Room Air 09/01/17 00:00 78 99/54 08/31/17 23:52 76 08/31/17 20:00 98 08/31/17 20:00 Room Air 08/31/17 20:00 98.5 80 20 113/66 (82) 92 08/31/17 16:57 97 104/57 (73) 08/31/17 16:00 98.0 60 18 95/56 (69) 93 08/31/17 14:34 88 116/59 (78) 08/31/17 12:49 89 116/76 (89) 08/31/17 12:00 98.2 143 18 137/98 (111) 96 08/31/17 12:00 145 137/90 (106) 08/31/17 12:00 145 137/90 I/O 08/31/17 08/31/17 08/31/17 09/01/17 09/01/17 09/01/17 07:00 15:00 23:00 07:00 15:00 23:00 Intake Total 440 ml 480 ml 1380 ml Output Total 400 ml Balance 440 ml 80 ml 1380 ml Intake Oral 440 ml 480 ml 480 ml IV Total 900 ml Output Urine Total 400 ml # Voids 3 3 # Bowel Movements 2 0 Result Diagram: 08/31/1725 08/31/17624 Imaging Last Impressions Myocardial Perfusion Scan Nuc Med 08/29/17 0000 Signed Impressions: Service Date/Time: Tuesday, August 29, 2017 10:49 - CONCLUSION: Minimal redistribution small segment inferior wall correlation suggested. RISK CATEGORY: Low (<1%% Annual Mortality Rate) Adan Parsons MD FACR Lower Extremity Ultrasound 08/28/17 0000 Signed Impressions: Service Date/Time: Monday, August 28, 2017 20:03 - CONCLUSION: Negative for deep venous thrombosis bilateral lower extremity. Yunior Cruz MD CT Angiography 08/28/17 0000 Signed Impressions: Service Date/Time: Monday, August 28, 2017 21:29 - CONCLUSION: The study is negative for pulmonary embolism. Yunior Cruz MD Objective Remarks GENERAL: This is a well-nourished, well-developed patient, in no apparent distress. CARDIOVASCULAR: Regular rate and irregular rhythm without murmurs, gallops, or rubs. RESPIRATORY: Clear to auscultation. Breath sounds equal bilaterally. No wheezes , rales, or rhonchi. GASTROINTESTINAL: Abdomen soft, non-tender, nondistended. Normal, active bowel sounds MUSCULOSKELETAL: Extremities without clubbing, cyanosis, or edema. NEURO: Alert & Oriented x4 to person, place, time, situation. Moves all ext x4 Procedures none Medications and IVs Current Medications Sodium Chloride (NS Flush) 2 ml BID IV FLUSH Last administered on 08/31/17 20: 42; Start 08/28/17 at 21:00 Sodium Chloride (NS Flush) 2 ml UNSCH PRN IV FLUSH FLUSH AFTER USING IV ACCESS ; Start 08/28/17 at 14:45 Aspirin (Aspirin) 325 mg DAILY PO Last administered on 08/31/17 09:34; Start 08/29/17 at 09:00; Stop 08/31/17 at 13:48; Status DC Nitroglycerin (Nitrostat Sl) 0.4 mg Q5M PRN SL ANGINA Last administered on 01:50; Start 08/28/17 at 14:45 Enoxaparin Sodium (Lovenox Inj) 40 mg Q24H SQ ; Start 08/28/17 at 14:45; Status Cancel Dextrose (D50w (Vial) Inj) 50 ml UNSCH PRN IV PUSH HYPOGLYCEMIA-SEE COMMENTS; Start 08/28/17 at 14:45 Glucagon (Glucagon Inj) 1 mg UNSCH PRN OTHER HYPOGLYCEMIA-SEE COMMENTS; Start 08/28/17 at 14:45 Insulin Aspart (NovoLOG SUPPLEMENTAL SCALE) 1 ACHS SLIDING SCALE SQ ; Start at 17:00 Enalaprilat (Vasotec Inj) 1.25 mg Q6H PRN IV PUSH SBP> OR = 180, DBP> OR = 100 ; Start 08/28/17 at 14:45 Hydralazine HCl (Apresoline Inj) 10 mg Q6H PRN IV PUSH SBP> OR = 180, DBP> OR = 100; Start 08/28/17 at 14:45 Clonidine (Catapres) 0.1 mg Q6H PRN PO SBP> OR = 180, DBP> OR = 100; Start at 14:45 Acetaminophen (Tylenol) 650 mg Q4H PRN PO TEMP > 100.4; Start 08/28/17 at 14: 45 Ondansetron HCl (Zofran Inj) 4 mg Q6H PRN IVP NAUSEA OR VOMITING Last administered on 08/30/17 21:09; Start 08/28/17 at 14:45 Acetaminophen (Tylenol) 650 mg Q6H PRN PO PAIN SCALE 1 TO 2; Start 08/28/17 at 14:45 Acetaminophen/ Hydrocodone Bitart ([place] 5-325 Mg) 1 tab Q4H PRN PO PAIN SCALE 3 TO 5; Start 08/28/17 at 14:45 Acetaminophen/ Hydrocodone Bitart ([place] 7.5-325 Mg) 1 tab Q4H PRN PO PAIN SCALE 6 TO 10 Last administered on 08/31/17 20:40; Start 08/28/17 at 14:45 Morphine Sulfate (Morphine Inj) 1 mg Q3H PRN IV PUSH BREAKTHROUGH PAIN; Start 08/28/17 at 14:45 Naloxone HCl (Narcan Inj) 0.4 mg UNSCH PRN IV PUSH SEE LABEL COMMENTS; Start 08/28/17 at 14:45 Senna/Docusate Sodium (Gracia-Colace) 1 tab BID PO Last administered on 09:45; Start 08/28/17 at 21:00; Stop 08/30/17 at 16:32; Status DC Magnesium Hydroxide (Milk Of Magnesia Liq) 30 ml Q12H PRN PO Mild constipation ; Start 08/28/17 at 14:45 Sennosides (Senokot) 17.2 mg Q12H PRN PO Moderate constipation; Start at 14:45 Bisacodyl (Dulcolax Supp) 10 mg DAILY PRN RECTAL SEVERE CONSITIPATION; Start 08/28/17 at 14:45 Lactulose (Lactulose Liq) 30 ml DAILY PRN PO SEVERE CONSITIPATION; Start 08/28 at 14:45 Enoxaparin Sodium (Lovenox Inj) 90 mg ONCE ONCE SQ Last administered on 18:30; Start 08/28/17 at 18:30; Stop 08/28/17 at 18:32; Status DC Ciprofloxacin (Cipro) 500 mg BID PO Last administered on 08/31/17 20:41; Start 08/28/17 at 21:00; Stop 09/04/17 at 20:59 Furosemide (Lasix) 20 mg DAILY PO Last administered on 08/31/17 09:34; Start 08/29/17 at 09:00; Status Future hold Levothyroxine Sodium (Synthroid) 150 mcg DAILY PO Last administered on 09:34; Start 08/29/17 at 09:00 Metoprolol Succinate (Toprol Xl) 100 mg DAILY PO Last administered on 09:34; Start 08/29/17 at 09:00; Stop 08/31/17 at 11:13; Status DC Famotidine (Pepcid) 20 mg HS PO Last administered on 08/31/17 20:41; Start at 21:00 Iohexol (Omnipaque 350 Inj) 74 ml STK-MED ONCE IVCONTRAST Last administered on 08/28/17 21:31; Start 08/28/17 at 21:31; Stop 08/28/17 at 21:32; Status DC Diphenhydramine HCl (Benadryl) 25 mg ONCE ONCE PO ; Start 08/29/17 at 00:30; Stop 08/29/17 at 00:31; Status DC Sodium Chloride 1,000 ml @ 60 mls/hr [id number] ONCE IV Last administered on 09:23; Start 08/29/17 at 08:00; Stop 08/30/17 at 00:39; Status DC Heparin Sodium (Porcine) (Heparin Inj) 5,000 units Q12HR SQ Last administered on 08/31/17 09:34; Start 08/29/17 at 09:00; Stop 08/31/17 at 13:48; Status DC Regadenoson (Lexiscan Inj) 0.4 mg STK-MED ONCE .ROUTE Last administered on 11:58; Start 08/29/17 at 11:58; Stop 08/29/17 at 11:59; Status DC Buspirone HCl (Buspar) 10 mg Q12HR PO Last administered on 08/31/17 20:41; Start 08/29/17 at 14:00 Nitroglycerin (Nitroglycerin 2% Oint) 1 inch Q8HR TOPICAL Last administered on 08/30/17 05:36; Start 08/29/17 at 16:00; Stop 08/30/17 at 07:37; Status DC Isosorbide Mononitrate (Imdur) 30 mg DAILY@07 PO Last administered on 06:13; Start 08/30/17 at 07:00 Temazepam (Restoril) 7.5 mg ONCE ONCE PO Last administered on 08/29/17 21:22 ; Start 08/29/17 at 21:15; Stop 08/29/17 at 21:16; Status DC Potassium Chloride (KCl) 30 meq ONCE ONCE PO Last administered on 08/30/17 13:46; Start 08/30/17 at 13:00; Stop 08/30/17 at 13:01; Status DC Atorvastatin Calcium (Lipitor) 40 mg HS PO Last administered on 08/31/17 20:41 ; Start 08/30/17 at 21:00 Hypromellose (Genteal Severe Dry Eye Relief 0.3% Opth Gel) 2 drop Q6H PRN EACH EYE DRY EYE Last administered on 08/31/17 05:51; Start 08/30/17 at 12:00 Sodium Chloride 1,000 ml @ 84 mls/hr [id number] IV Last administered on 16:27; Start 08/30/17 at 17:00 Lactobacillus Acidophilus (Lactinex) 1 tab TID PO Last administered on 16:22; Start 08/30/17 at 18:00 Metoprolol Succinate (Toprol Xl) 150 mg DAILY PO ; Start 09/01/17 at 09:00 Metoprolol Tartrate (Lopressor) 50 mg ONCE ONCE PO ; Start 08/31/17 at 12:40; Stop 08/31/17 at 12:41; Status DC Diltiazem HCl 125 mg/Sodium Chloride 125 ml @ 5 mls/hr TITRATE PRN IV Tachycardia Last administered on 08/31/17t 12:00; Start 08/31/17 at 11:15; Status Future Hold Aspirin (Ecotrin Ec) 81 mg DAILY PO ; Start 09/01/17 at 09:00 Apixaban (Eliquis) 5 mg BID PO Last administered on 08/31/17 20:41; Start 08/31/17 at 15:00 A/P Problem List: (1) Chest pain ICD Code: R07.9 - Chest pain, unspecified Assessment and Plan A/P CP with typical and atypical features with history of CAD status post [place]. Ruled out for [place] by cardiac enzymes. Stress test is abnormal as noted. Symptoms resolved. Cardiology recommended medical management with risk factor modification. Continue aspirin, Toprol, sublingual nitroglycerin and statin- imdur was added.f/u with cardiology as outpatient. New onset A. fib with RVR. High [id number] score of 5. Unremarkable TSH and Echocardiogram. continue metoprolol. off Cardizem drip since a few hours ago . Agrees with Eliquis Negative Doppler sonogram of the lower extremities for DVT. Also negative CTA. dizziness/ with low-normal BP's- will decrease lopressor to 100 mg po daily- check orthostatic BP- continue with IV fluid and monitor. Anxiety. Continue BuSpar. UTI which is currently being treated. Continue ciprofloxacin Diabetes mellitus. Monitor fingersticks and sliding scale coverage Insomnia. Patient requesting Restoril aware of addicting potential Passed walk test Patient also requesting a home health care PT DVT prophylaxis with Eliquis Discharge Planning dc home with [facility] within the next 24 hrs- if stable- Problem Qualifiers (1) Chest pain: Qualified Codes: R07.9 - Chest pain, unspecified Simon Calzada MD Sep 01, 2017 08:10
[2017-09-01] MEDS ORDERED: METO100T9 PO ×2 (08:12)
[2017-09-01] MEDS ORDERED: METOPROLOL SUCCINATE 50 MG EXTENDED RELEASE TAB PO SCH ×4 (09:00)
[2017-09-01] MEDS: LEVOTHYROXINE SODIUM 150 MCG TAB PO SCH ×2 (09:26)
[2017-09-01] MEDS: LACTOBACILLUS ACIDOPHILUS TAB PO SCH ×6 (09:27→17:23)
[2017-09-01] MEDS: APIXABAN 5 MG TABLET PO SCH ×4 (09:27→21:39)
[2017-09-01] MEDS: ASPIRIN EC 81 MG TABEC PO SCH ×2 (09:27)
[2017-09-01] MEDS: FUROSEMIDE 20 MG TAB PO SCH ×2 (09:27)
[2017-09-01] MEDS: CIPROFLOXACIN 500 MG TAB PO SCH ×4 (09:30→21:39)
[2017-09-01] MEDS: SODIUM CHLORIDE 0.9% FLUSH 10 ML FLUSH IV FLUSH SCH ×4 (09:30→21:39)
[2017-09-01 10:36] LABS: BICARBONATE 24.5 MEQ/L (21.0-32.0); CALCIUM 7.8 MG/DL (8.5-10.1); CREATININE 1.08 MG/DL (0.50-1.00); MAGNESIUM 2.2 MG/DL (1.5-2.5)
[2017-09-01] MEDS: busPIRone HCL 10 MG TAB PO SCH ×4 (12:22→21:39)
--- NOTE | 2017-09-01 16:31 | EKG ---
Date Performed: 08/31/2017 Time Performed: 11:19:24 PTAGE: 67 years EKG: Atrial flutter with rapid ventricular response with 2:1 A-V block. Extensive ST-T changes m ay be due to myocardial ischemia When comparedtoprevious tracing, rate has increased Significantly. M ore pronouncedST-T changes. Clinical corrolationis suggested. Abnormal ECG PREVIOUS TRACING : 08/29/2017 01.04 DOCTOR: Brayan Mcmanus Interpretating Date/Time 09/01/2017 16:30:48
[2017-09-01] MEDS: ATORVASTATIN 40 MG TAB PO SCH ×2 (21:39)
[2017-09-01] MEDS: FAMOTIDINE 20 MG TAB PO SCH ×2 (21:39)
[2017-09-01] MEDS: ACETAMINOPHEN/HYDROcodone 325 MG/7.5 MG TAB PO PRN ×2 (23:37)
[2017-09-02] VITALS (7 sets, daily range): BP systolic 134–164; BP diastolic 64–85; PULSE 62–81; RESP 18–22; TEMP 97.1–98.3; O2SAT 94–96
[2017-09-02] MEDS: ISOSORBIDE MONONITRATE 30 MG TAB PO SCH ×2 (05:54)
--- NOTE | 2017-09-02 08:34 | HHI.PR ---
Subjective Remarks in no acute distress. overall feels better and her BP has improved. no chest pain or sob. she says that she's good enough to go home today. Objective Vitals Vital Signs Date Time Temp Pulse Resp B/P (MAP) Pulse Ox O2 Delivery O2 Flow Rate FiO2 09/02/17 07:56 97.1 81 19 136/68 (90) 96 09/02/17 04:00 97.9 74 19 148/64 (92) 96 09/02/17 00:00 98.0 62 22 157/74 (101) 94 09/01/17 21:15 95 09/01/17 20:00 98.1 74 21 105/59 (74) 95 121/61 (81) 141/67 (91) 09/01/17 19:30 67 09/01/17 19:30 Room Air 21 09/01/17 16:00 98.3 66 16 116/75 (89) 94 09/01/17 08:30 82/57 (65) I/O 09/01/17 09/01/17 09/01/17 09/02/17 09/02/17 09/02/17 07:00 15:00 23:00 07:00 15:00 23:00 Intake Total 1380 ml 1111 ml Output Total 650 ml Balance 1380 ml 461 ml Intake Oral 480 ml 420 ml IV Total 900 ml 691 ml Output Urine Total 650 ml # Voids 3 # Bowel Movements 0 0 Result Diagram: 08/31/17 0625 09/01/17 0745 Imaging Last Impressions Myocardial Perfusion Scan Nuc Med 08/29/17 0000 Signed Impressions: Service Date/Time: Tuesday, August 29, 2017 10:49 - CONCLUSION: Minimal redistribution small segment inferior wall correlation suggested. RISK CATEGORY: Low (<1%% Annual Mortality Rate) Adan Parsons MD FACR Lower Extremity Ultrasound 08/28/17 0000 Signed Impressions: Service Date/Time: Monday, August 28, 2017 20:03 - CONCLUSION: Negative for deep venous thrombosis bilateral lower extremity. Yunior Cruz MD CT Angiography 08/28/17 0000 Signed Impressions: Service Date/Time: Monday, August 28, 2017 21:29 - CONCLUSION: The study is negative for pulmonary embolism. Yunior Cruz MD Objective Remarks GENERAL: This is a well-nourished, well-developed patient, in no apparent distress. CARDIOVASCULAR: Regular rate and irregular rhythm without murmurs, gallops, or rubs. RESPIRATORY: Clear to auscultation. Breath sounds equal bilaterally. No wheezes , rales, or rhonchi. GASTROINTESTINAL: Abdomen soft, non-tender, nondistended. Normal, active bowel sounds MUSCULOSKELETAL: Extremities without clubbing, cyanosis, or edema. NEURO: Alert & Oriented x4 to person, place, time, situation. Moves all ext x4 Procedures none Medications and IVs Current Medications Sodium Chloride (NS Flush) 2 ml BID IV FLUSH Last administered on 09/01/17 21: 39; Start 08/28/17 at 21:00 Sodium Chloride (NS Flush) 2 ml UNSCH PRN IV FLUSH FLUSH AFTER USING IV ACCESS ; Start 08/28/17 at 14:45 Aspirin (Aspirin) 325 mg DAILY PO Last administered on 08/31/17 09:34; Start 08/29/17 at 09:00; Stop 08/31/17 at 13:48; Status DC Nitroglycerin (Nitrostat Sl) 0.4 mg Q5M PRN SL ANGINA Last administered on 01:50; Start 08/28/17 at 14:45 Enoxaparin Sodium (Lovenox Inj) 40 mg Q24H SQ ; Start 08/28/17 at 14:45; Status Cancel Dextrose (D50w (Vial) Inj) 50 ml UNSCH PRN IV PUSH HYPOGLYCEMIA-SEE COMMENTS; Start 08/28/17 at 14:45 Glucagon (Glucagon Inj) 1 mg UNSCH PRN OTHER HYPOGLYCEMIA-SEE COMMENTS; Start 08/28/17 at 14:45 Insulin Aspart (NovoLOG SUPPLEMENTAL SCALE) 1 ACHS SLIDING SCALE SQ ; Start at 17:00 Enalaprilat (Vasotec Inj) 1.25 mg Q6H PRN IV PUSH SBP> OR = 180, DBP> OR = 100 ; Start 08/28/17 at 14:45 Hydralazine HCl (Apresoline Inj) 10 mg Q6H PRN IV PUSH SBP> OR = 180, DBP> OR = 100; Start 08/28/17 at 14:45 Clonidine (Catapres) 0.1 mg Q6H PRN PO SBP> OR = 180, DBP> OR = 100; Start at 14:45 Acetaminophen (Tylenol) 650 mg Q4H PRN PO TEMP > 100.4; Start 08/28/17 at 14: 45 Ondansetron HCl (Zofran Inj) 4 mg Q6H PRN IVP NAUSEA OR VOMITING Last administered on 08/30/17 21:09; Start 08/28/17 at 14:45 Acetaminophen (Tylenol) 650 mg Q6H PRN PO PAIN SCALE 1 TO 2; Start 08/28/17 at 14:45 Acetaminophen/ Hydrocodone Bitart ([place] 5-325 Mg) 1 tab Q4H PRN PO PAIN SCALE 3 TO 5; Start 08/28/17 at 14:45 Acetaminophen/ Hydrocodone Bitart ([place] 7.5-325 Mg) 1 tab Q4H PRN PO PAIN SCALE 6 TO 10 Last administered on 09/01/17 23:37; Start 08/28/17 at 14:45 Morphine Sulfate (Morphine Inj) 1 mg Q3H PRN IV PUSH BREAKTHROUGH PAIN; Start 08/28/17 at 14:45 Naloxone HCl (Narcan Inj) 0.4 mg UNSCH PRN IV PUSH SEE LABEL COMMENTS; Start 08/28/17 at 14:45 Senna/Docusate Sodium (Gracia-Colace) 1 tab BID PO Last administered on 09:45; Start 08/28/17 at 21:00; Stop 08/30/17 at 16:32; Status DC Magnesium Hydroxide (Milk Of Magnesia Liq) 30 ml Q12H PRN PO Mild constipation ; Start 08/28/17 at 14:45 Sennosides (Senokot) 17.2 mg Q12H PRN PO Moderate constipation; Start at 14:45 Bisacodyl (Dulcolax Supp) 10 mg DAILY PRN RECTAL SEVERE CONSITIPATION; Start 08/28/17 at 14:45 Lactulose (Lactulose Liq) 30 ml DAILY PRN PO SEVERE CONSITIPATION Last administered on 09/01/17 17:26; Start 08/28/17 at 14:45 Enoxaparin Sodium (Lovenox Inj) 90 mg ONCE ONCE SQ Last administered on 18:30; Start 08/28/17 at 18:30; Stop 08/28/17 at 18:32; Status DC Ciprofloxacin (Cipro) 500 mg BID PO Last administered on 09/01/17 21:39; Start 08/28/17 at 21:00; Stop 09/04/17 at 20:59 Furosemide (Lasix) 20 mg DAILY PO Last administered on 09/01/17 09:27; Start 08/29/17 at 09:00; Status Future hold Levothyroxine Sodium (Synthroid) 150 mcg DAILY PO Last administered on 09:26; Start 08/29/17 at 09:00 Metoprolol Succinate (Toprol Xl) 100 mg DAILY PO Last administered on 09:34; Start 08/29/17 at 09:00; Stop 08/31/17 at 11:13; Status DC Famotidine (Pepcid) 20 mg HS PO Last administered on 09/01/17 21:39; Start at 21:00 Iohexol (Omnipaque 350 Inj) 74 ml STK-MED ONCE IVCONTRAST Last administered on 08/28/17 21:31; Start 08/28/17 at 21:31; Stop 08/28/17 at 21:32; Status DC Diphenhydramine HCl (Benadryl) 25 mg ONCE ONCE PO ; Start 08/29/17 at 00:30; Stop 08/29/17 at 00:31; Status DC Sodium Chloride 1,000 ml @ 60 mls/hr [id number] ONCE IV Last administered on 09:23; Start 08/29/17 at 08:00; Stop 08/30/17 at 00:39; Status DC Heparin Sodium (Porcine) (Heparin Inj) 5,000 units Q12HR SQ Last administered on 08/31/17 09:34; Start 08/29/17 at 09:00; Stop 08/31/17 at 13:48; Status DC Regadenoson (Lexiscan Inj) 0.4 mg STK-MED ONCE .ROUTE Last administered on 11:58; Start 08/29/17 at 11:58; Stop 08/29/17 at 11:59; Status DC Buspirone HCl (Buspar) 10 mg Q12HR PO Last administered on 09/01/17 21:39; Start 08/29/17 at 14:00 Nitroglycerin (Nitroglycerin 2% Oint) 1 inch Q8HR TOPICAL Last administered on 08/30/17 05:36; Start 08/29/17 at 16:00; Stop 08/30/17 at 07:37; Status DC Isosorbide Mononitrate (Imdur) 30 mg DAILY@07 PO Last administered on 05:54; Start 08/30/17 at 07:00 Temazepam (Restoril) 7.5 mg ONCE ONCE PO Last administered on 08/29/17 21:22 ; Start 08/29/17 at 21:15; Stop 08/29/17 at 21:16; Status DC Potassium Chloride (KCl) 30 meq ONCE ONCE PO Last administered on 08/30/17 13:46; Start 08/30/17 at 13:00; Stop 08/30/17 at 13:01; Status DC Atorvastatin Calcium (Lipitor) 40 mg HS PO Last administered on 09/01/17 21:39 ; Start 08/30/17 at 21:00 Hypromellose (Genteal Severe Dry Eye Relief 0.3% Opth Gel) 2 drop Q6H PRN EACH EYE DRY EYE Last administered on 08/31/17 05:51; Start 08/30/17 at 12:00 Sodium Chloride 1,000 ml @ 84 mls/hr [id number] IV Last administered on 21:37; Start 08/30/17 at 17:00 Lactobacillus Acidophilus (Lactinex) 1 tab TID PO Last administered on 17:23; Start 08/30/17 at 18:00 Metoprolol Succinate (Toprol Xl) 150 mg DAILY PO ; Start 09/01/17 at 09:00; Stop 09/01/17 at 09:00; Status DC Metoprolol Tartrate (Lopressor) 50 mg ONCE ONCE PO ; Start 08/31/17 at 12:40; Stop 08/31/17 at 12:41; Status DC Diltiazem HCl 125 mg/Sodium Chloride 125 ml @ 5 mls/hr TITRATE PRN IV Tachycardia Last administered on 08/31/17 12:00; Start 08/31/17 at 11:15; Status Future Hold Aspirin (Ecotrin Ec) 81 mg DAILY PO Last administered on 09/01/17 09:27; Start 09/01/17 at 09:00 Apixaban (Eliquis) 5 mg BID PO Last administered on 09/01/17 21:39; Start 08/31/17 at 15:00 Metoprolol Succinate (Toprol Xl) 100 mg DAILY PO ; Start 09/01/17 at 09:00 A/P Problem List: (1) Chest pain ICD Code: R07.9 - Chest pain, unspecified Assessment and Plan A/P CP with typical and atypical features with history of CAD status post [place]. Ruled out for [place] by cardiac enzymes. Stress test is abnormal as noted. Symptoms resolved. Cardiology recommended medical management with risk factor modification. Continue aspirin, Toprol, sublingual nitroglycerin and statin- imdur was added.f/u with cardiology as outpatient. New onset A. fib with RVR. High [id number] score of 5. Unremarkable TSH and Echocardiogram. continue metoprolol. Agrees with Eliquis Negative Doppler sonogram of the lower extremities for DVT. Also negative CTA. dizziness/ with low-normal BP's- improved- decreased lopressor to 100 mg po daily- no orthostatic BP- Anxiety. Continue BuSpar. UTI which is currently being treated. Continue ciprofloxacin Diabetes mellitus. Monitor fingersticks and sliding scale coverage Passed walk test COPD- with no exacerbation- albuterol as needed- f/u as outpatient- Patient also requesting a home health care PT DVT prophylaxis with Eliquis Discharge Planning dc home with C today. see med list. f/u; pcp and cardiology. d/w the patient. time spent 32 min. Problem Qualifiers (1) Chest pain: Qualified Codes: R07.9 - Chest pain, unspecified Simon Calzada MD Sep 02, 2017 08:34
--- NOTE | 2017-09-02 08:35 | HHI.DS ---
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 She presents to the emergency department complaining of severe retrosternal pressure since last night radiating to the left upper extremity intermittently associated with shortness of breath and diaphoresis. Also noted irregular heartbeat sensation/ palpitations for the past 2 days. Pain is related to exertion as well as pleuritic with deep inspiration. Symptoms similar to her previous heart attack. States she had a cardiac catheterization a while ago did not have a stent. Patient reports of temporary relief with aspirin, sublingual nitroglycerin and IV morphine states her pain is improving but continues to have palpitation. Telemetry shows sinus tachycardia with PAC. Patient also reports of left ankle swelling and bilateral leg pain. No recent travel, immobilization, DVT or PE. All other systems reviewed negative CBC/BMP: 08/31/17 0625 09/01/17 0745 Significant Findings Laboratory Tests Test 08/31/17 06:25 09/01/17 07:45 Eosinophils (%) (Auto) 5.8 % (0.0-4.0) Eosinophils # (Auto) 0.5 TH/MM3 (0-0.4) Blood Urea Nitrogen 22 MG/DL (7-18) 24 MG/DL (7-18) Creatinine 1.13 MG/DL (0.50-1.00) 1.08 MG/DL (0.50-1.00) Calcium Level 7.9 MG/DL (8.5-10.1) 7.8 MG/DL (8.5-10.1) Estimat Glomerular Filtration Rate 48 ML/MIN (>89) 50 ML/MIN (>89) Imaging Last Impressions Myocardial Perfusion Scan Nuc Med 08/29/17 0000 Signed Impressions: Service Date/Time: Tuesday, August 29, 2017 10:49 - CONCLUSION: Minimal redistribution small segment inferior wall correlation suggested. RISK CATEGORY: Low (<1%% Annual Mortality Rate) Adan Parsons MD FACR Lower Extremity Ultrasound 08/28/17 0000 Signed Impressions: Service Date/Time: Monday, August 28, 2017 20:03 - CONCLUSION: Negative for deep venous thrombosis bilateral lower extremity. Yunior Cruz MD CT Angiography 08/28/17 0000 Signed Impressions: Service Date/Time: Monday, August 28, 2017 21:29 - CONCLUSION: The study is negative for pulmonary embolism. Yunior Cruz MD PE at Discharge GENERAL: This is a well-nourished, well-developed patient, in no apparent distress. CARDIOVASCULAR: Regular rate and irregular rhythm without murmurs, gallops, or rubs. RESPIRATORY: Clear to auscultation. Breath sounds equal bilaterally. No wheezes , rales, or rhonchi. GASTROINTESTINAL: Abdomen soft, non-tender, nondistended. Normal, active bowel sounds MUSCULOSKELETAL: Extremities without clubbing, cyanosis, or edema. NEURO: Alert & Oriented x4 to person, place, time, situation. Moves all ext x4 Hospital Course CP with typical and atypical features with history of CAD status post [place]. Ruled out for [place] by cardiac enzymes. Stress test is abnormal as noted. Symptoms resolved. Cardiology recommended medical management with risk factor modification. Continue aspirin, Toprol, sublingual nitroglycerin and statin- imdur was added.f/u with cardiology as outpatient. New onset A. fib with RVR. High [id number] score of 5. Unremarkable TSH and Echocardiogram. continue metoprolol. Agrees with Eliquis Negative Doppler sonogram of the lower extremities for DVT. Also negative CTA. dizziness/ with low-normal BP's- improved- decreased lopressor to 100 mg po daily- no orthostatic BP- Anxiety. Continue BuSpar. UTI which is currently being treated. Continue ciprofloxacin Diabetes mellitus. Monitor fingersticks and sliding scale coverage Passed walk test COPD- with no exacerbation- - f/u as outpatient- might need pulmonary referral. Patient also requesting a home health care PT DVT prophylaxis with Eliquis Pt Condition on Discharge: Stable Discharge Disposition: Discharge Home Discharge Time: > 30 minutes Discharge Instructions DIET: Follow Instructions for: Heart Healthy Diet, Diabetic Diet Activities you can perform: Regular-No Restrictions Activities to Avoid: Driving Follow up Referrals: Cardiology - 1 Week PCP Follow-up - 2-3 Days SNF[facility]/ with [facility] at Home New Medications: Metoprolol Succinate ER 24 HR (Metoprolol Succinate ER 24 HR) 100 Mg Tab 100 MG PO DAILY for a-fib, #30 TAB 0 Refills Oxygen (O2) (Oxygen (O2)) Device LITER JEANETTE.CANULA CONTINUOUS for Prevent Hypoxemia, #2 Oxygen Concentrator Portable Gaseous 2 L/min via Nasal Canula Continuous For 99 months Apixaban (Eliquis) 5 Mg Tab 5 MG PO BID for Prevent Blood Clot, #60 TAB Atorvastatin (Atorvastatin) 40 Mg Tab 40 MG PO HS for Cholesterol Management, #30 TAB Buspirone (Buspirone) 10 Mg Tab 10 MG PO Q12HR for Control Anxiety, #60 TAB Carboxymethylcellulos-Hypromellose Opth Gel (Genteal Severe Opth Gel) 0.25-0.3% Gel 2 DROP EACH EYE Q6H PRN for DRY EYE, #1 TUBE Famotidine (Famotidine) 20 Mg Tab 20 MG PO HS for Manage Heartburn, #30 TAB Isosorbide Mononitrate ER (Isosorbide Mononitrate ER) 30 Mg Shantal 30 MG PO DAILY@07 for chest pain, #30 TAB Potassium Chloride ER (Klor-Con 10) 10 Meq Tab 30 MEQ PO DAILY for Electrolyte Replacement, #6 TAB Temazepam (Restoril) 7.5 Mg Cap 7.5 MG PO HS PRN for insomnia, #5 CAP Continued Medications: Aspirin (Aspirin Children's) 81 Mg Chew 81 MG CHEW DAILY, TAB 0 Refills Ciprofloxacin (Cipro) 500 Mg Tab 500 MG PO BID for Infection, TAB 0 Refills Furosemide (Lasix) 20 Mg Tab 20 MG PO DAILY, #30 TAB 0 Refills Gabapentin (Gabapentin) 300 Mg Cap 300 MG PO DAILY PRN for PAIN SCALE 1 TO 10, #60 CAP 0 Refills Hydrocodone-Acetaminophen (Hydrocodone-Acetaminophen) 5-325 mg Tab 1 TAB PO DAILY, TAB 0 Refills Levothyroxine (Levothyroxine) 150 Mcg Tab 150 MCG PO DAILY for Thyroid, #30 TAB 0 Refills Losartan (Losartan) Unknown Strength Tab Unknown Dose PO DAILY for Blood Pressure Management, #30 TAB 0 Refills Discontinued Medications: Ranitidine (Zantac) 150 Mg Tab 150 MG PO HS for Reduce Stomach Acid, #30 TAB 0 Refills Simon Calzada MD Sep 02, 2017 08:35
[2017-09-02] MEDS: INSULIN ASPART SUPPLEMENTAL SCALE SQ SCH ×8 (08:58→20:35)
[2017-09-02] MEDS: LACTOBACILLUS ACIDOPHILUS TAB PO SCH ×6 (08:59→17:26)
[2017-09-02] MEDS: ASPIRIN EC 81 MG TABEC PO SCH ×2 (09:00)
[2017-09-02] MEDS: LEVOTHYROXINE SODIUM 150 MCG TAB PO SCH ×2 (09:00)
[2017-09-02] MEDS: APIXABAN 5 MG TABLET PO SCH ×4 (09:00→20:34)
[2017-09-02] MEDS: CIPROFLOXACIN 500 MG TAB PO SCH ×4 (09:00→20:35)
[2017-09-02] MEDS: SODIUM CHLORIDE 0.9% FLUSH 10 ML FLUSH IV FLUSH SCH ×4 (09:01→20:35)
[2017-09-02] MEDS: FUROSEMIDE 20 MG TAB PO SCH ×2 (09:01)
[2017-09-02] MEDS: busPIRone HCL 10 MG TAB PO SCH ×2 (09:06)
--- NOTE | 2017-09-02 12:02 | EKG ---
Date Performed: 09/02/2017 Time Performed: 04:01:24 PTAGE: 67 years EKG: Multifocal atrial rhythm Possible anterior infarct - age undetermined Inferior/lateral T wa ve changes may be due to myocardial ischemia Low QRS voltages in precordial leads Compared to previou s tracing the MAT has replaced atrial flutter with rapid ventricular response Abnormal ECG PREVIOUS TRACING : 08/31/2017 11.19 DOCTOR: Bret Ratliff Interpretating Date/Time 09/02/2017 12:01:36
--- NOTE | 2017-09-02 14:53 | HHI.FF ---
Face to Face Verification Diagnosis: (1) Atrial fibrillation Physical Therapy Order: Evaluate and Treat Home Health Nursing Order: Medical education Signs/symptoms of disease process Medication education-adverse effect Nursing assessment with vital signs I have seen patient Noni Martin on 09/02/17. My clinical findings support the need for the requested home health care services because: Ltd mobility - disease progression I certify that my clinical findings support that this patient is homebound because: Poor cardiac reserve Simon Calzada MD Sep 02, 2017 14:53
--- NOTE | 2017-09-02 14:54 | HHI.PR ---
Addendum To [facility] Progress Not Reason for addendum: Additonal documentation (notified by the RN that the patient became bradycardic and lightheaded- will hold metoprolol and observe- hold dc planning for today.) Simon Calzada MD Sep 02, 2017 14:54
[2017-09-02] MEDS: FAMOTIDINE 20 MG TAB PO SCH ×2 (20:34)
[2017-09-02] MEDS: ACETAMINOPHEN/HYDROcodone 325 MG/7.5 MG TAB PO PRN ×2 (20:35)
[2017-09-02] MEDS: ATORVASTATIN 40 MG TAB PO SCH ×2 (20:35)
[2017-09-02] MEDS: SODIUM CHLOR 0.9% 1000 ML INJ 1,000 ML IV SCH ×2 (20:35)
[2017-09-03 03:39] VITALS: BP 130/55; PULSE 76; RESP 18; TEMP 97.8; O2SAT 97
[2017-09-03] MEDS: ISOSORBIDE MONONITRATE 30 MG TAB PO SCH ×2 (06:15)
--- NOTE | 2017-09-03 08:19 | HHI.PR ---
Subjective Remarks in no acute distress. denies chest pain, sob or dizziness. feeling better today. no new complaints. Objective Vitals Vital Signs Date Time Temp Pulse Resp B/P (MAP) Pulse Ox O2 Delivery O2 Flow Rate FiO2 09/03/17 03:39 97.8 76 18 130/55 (80) 97 09/02/17 21:34 21 09/02/17 20:00 98.3 74 18 134/76 (95) 94 09/02/17 20:00 78 09/02/17 19:30 Room Air 21 09/02/17 16:00 98.2 70 20 164/76 (105) 96 09/02/17 12:00 98.3 70 18 163/85 (111) 95 I/O 09/02/17 09/02/17 09/02/17 09/03/17 09/03/17 09/03/17 07:00 15:00 23:00 07:00 15:00 23:00 Intake Total 1111 ml 480 ml 480 ml Output Total 650 ml Balance 461 ml 480 ml 480 ml Intake Oral 420 ml 480 ml 480 ml IV Total 691 ml Output Urine Total 650 ml # Voids 3 4 # Bowel Movements 0 0 Result Diagram: 08/31/17 0625 09/01/17 0745 Imaging Last Impressions Myocardial Perfusion Scan Nuc Med 08/29/17 0000 Signed Impressions: Service Date/Time: Tuesday, August 29, 2017 10:49 - CONCLUSION: Minimal redistribution small segment inferior wall correlation suggested. RISK CATEGORY: Low (<1%% Annual Mortality Rate) Adan Parsons MD FACR Lower Extremity Ultrasound 08/28/17 0000 Signed Impressions: Service Date/Time: Monday, August 28, 2017 20:03 - CONCLUSION: Negative for deep venous thrombosis bilateral lower extremity. Yunior Cruz MD CT Angiography 08/28/17 0000 Signed Impressions: Service Date/Time: Monday, August 28, 2017 21:29 - CONCLUSION: The study is negative for pulmonary embolism. Yunior Cruz MD Objective Remarks GENERAL: This is a well-nourished, well-developed patient, in no apparent distress. CARDIOVASCULAR: Regular rate and irregular rhythm without murmurs, gallops, or rubs. RESPIRATORY: Clear to auscultation. Breath sounds equal bilaterally. No wheezes , rales, or rhonchi. GASTROINTESTINAL: Abdomen soft, non-tender, nondistended. Normal, active bowel sounds MUSCULOSKELETAL: Extremities without clubbing, cyanosis, or edema. NEURO: Alert & Oriented x4 to person, place, time, situation. Moves all ext x4 Procedures none Medications and IVs Current Medications Sodium Chloride (NS Flush) 2 ml BID IV FLUSH Last administered on 09/02/17 20: 35; Start 08/28/17 at 21:00 Sodium Chloride (NS Flush) 2 ml UNSCH PRN IV FLUSH FLUSH AFTER USING IV ACCESS ; Start 08/28/17 at 14:45 Aspirin (Aspirin) 325 mg DAILY PO Last administered on 08/31/17 09:34; Start 08/29/17 at 09:00; Stop 08/31/17 at 13:48; Status DC Nitroglycerin (Nitrostat Sl) 0.4 mg Q5M PRN SL ANGINA Last administered on 01:50; Start 08/28/17 at 14:45 Enoxaparin Sodium (Lovenox Inj) 40 mg Q24H SQ ; Start 08/28/17 at 14:45; Status Cancel Dextrose (D50w (Vial) Inj) 50 ml UNSCH PRN IV PUSH HYPOGLYCEMIA-SEE COMMENTS; Start 08/28/17 at 14:45 Glucagon (Glucagon Inj) 1 mg UNSCH PRN OTHER HYPOGLYCEMIA-SEE COMMENTS; Start 08/28/17 at 14:45 Insulin Aspart (NovoLOG SUPPLEMENTAL SCALE) 1 ACHS SLIDING SCALE SQ ; Start at 17:00 Enalaprilat (Vasotec Inj) 1.25 mg Q6H PRN IV PUSH SBP> OR = 180, DBP> OR = 100 ; Start 08/28/17 at 14:45 Hydralazine HCl (Apresoline Inj) 10 mg Q6H PRN IV PUSH SBP> OR = 180, DBP> OR = 100; Start 08/28/17 at 14:45 Clonidine (Catapres) 0.1 mg Q6H PRN PO SBP> OR = 180, DBP> OR = 100; Start at 14:45 Acetaminophen (Tylenol) 650 mg Q4H PRN PO TEMP > 100.4; Start 08/28/17 at 14: 45 Ondansetron HCl (Zofran Inj) 4 mg Q6H PRN IVP NAUSEA OR VOMITING Last administered on 08/30/17 21:09; Start 08/28/17 at 14:45 Acetaminophen (Tylenol) 650 mg Q6H PRN PO PAIN SCALE 1 TO 2; Start 08/28/17 at 14:45 Acetaminophen/ Hydrocodone Bitart ([place] 5-325 Mg) 1 tab Q4H PRN PO PAIN SCALE 3 TO 5; Start 08/28/17 at 14:45 Acetaminophen/ Hydrocodone Bitart ([place] 7.5-325 Mg) 1 tab Q4H PRN PO PAIN SCALE 6 TO 10 Last administered on 09/02/17 20:35; Start 08/28/17 at 14:45 Morphine Sulfate (Morphine Inj) 1 mg Q3H PRN IV PUSH BREAKTHROUGH PAIN; Start 08/28/17 at 14:45 Naloxone HCl (Narcan Inj) 0.4 mg UNSCH PRN IV PUSH SEE LABEL COMMENTS; Start 08/28/17 at 14:45 Senna/Docusate Sodium (Gracia-Colace) 1 tab BID PO Last administered on 09:45; Start 08/28/17 at 21:00; Stop 08/30/17 at 16:32; Status DC Magnesium Hydroxide (Milk Of Magnesia Liq) 30 ml Q12H PRN PO Mild constipation ; Start 08/28/17 at 14:45 Sennosides (Senokot) 17.2 mg Q12H PRN PO Moderate constipation; Start at 14:45 Bisacodyl (Dulcolax Supp) 10 mg DAILY PRN RECTAL SEVERE CONSITIPATION; Start 08/28/17 at 14:45 Lactulose (Lactulose Liq) 30 ml DAILY PRN PO SEVERE CONSITIPATION Last administered on 09/01/17 17:26; Start 08/28/17 at 14:45 Enoxaparin Sodium (Lovenox Inj) 90 mg ONCE ONCE SQ Last administered on 18:30; Start 08/28/17 at 18:30; Stop 08/28/17 at 18:32; Status DC Ciprofloxacin (Cipro) 500 mg BID PO Last administered on 09/02/17 20:35; Start 08/28/17 at 21:00; Stop 09/04/17 at 20:59 Furosemide (Lasix) 20 mg DAILY PO Last administered on 09/02/17 09:01; Start 08/29/17 at 09:00; Status Future hold Levothyroxine Sodium (Synthroid) 150 mcg DAILY PO Last administered on 09:00; Start 08/29/17 at 09:00 Metoprolol Succinate (Toprol Xl) 100 mg DAILY PO Last administered on 09:34; Start 08/29/17 at 09:00; Stop 08/31/17 at 11:13; Status DC Famotidine (Pepcid) 20 mg HS PO Last administered on 09/02/17 20:34; Start at 21:00 Iohexol (Omnipaque 350 Inj) 74 ml STK-MED ONCE IVCONTRAST Last administered on 08/28/17 21:31; Start 08/28/17 at 21:31; Stop 08/28/17 at 21:32; Status DC Diphenhydramine HCl (Benadryl) 25 mg ONCE ONCE PO ; Start 08/29/17 at 00:30; Stop 08/29/17 at 00:31; Status DC Sodium Chloride 1,000 ml @ 60 mls/hr [id number] ONCE IV Last administered on 09:23; Start 08/29/17 at 08:00; Stop 08/30/17 at 00:39; Status DC Heparin Sodium (Porcine) (Heparin Inj) 5,000 units Q12HR SQ Last administered on 08/31/17 09:34; Start 08/29/17 at 09:00; Stop 08/31/17 at 13:48; Status DC Regadenoson (Lexiscan Inj) 0.4 mg STK-MED ONCE .ROUTE Last administered on 11:58; Start 08/29/17 at 11:58; Stop 08/29/17 at 11:59; Status DC Buspirone HCl (Buspar) 10 mg Q12HR PO Last administered on 09/02/17 09:06; Start 08/29/17 at 14:00; Stop 09/02/17 at 18:42; Status DC Nitroglycerin (Nitroglycerin 2% Oint) 1 inch Q8HR TOPICAL Last administered on 08/30/17 05:36; Start 08/29/17 at 16:00; Stop 08/30/17 at 07:37; Status DC Isosorbide Mononitrate (Imdur) 30 mg DAILY@07 PO Last administered on 06:15; Start 08/30/17 at 07:00 Temazepam (Restoril) 7.5 mg ONCE ONCE PO Last administered on 08/29/17 21:22 ; Start 08/29/17 at 21:15; Stop 08/29/17 at 21:16; Status DC Potassium Chloride (KCl) 30 meq ONCE ONCE PO Last administered on 08/30/17 13:46; Start 08/30/17 at 13:00; Stop 08/30/17 at 13:01; Status DC Atorvastatin Calcium (Lipitor) 40 mg HS PO Last administered on 09/02/17 20:35 ; Start 08/30/17 at 21:00 Hypromellose (Genteal Severe Dry Eye Relief 0.3% Opth Gel) 2 drop Q6H PRN EACH EYE DRY EYE Last administered on 08/31/17 05:51; Start 08/30/17 at 12:00 Sodium Chloride 1,000 ml @ 84 mls/hr [id number] IV Last administered on 20:35; Start 08/30/17 at 17:00 Lactobacillus Acidophilus (Lactinex) 1 tab TID PO Last administered on 17:26; Start 08/30/17 at 18:00 Metoprolol Succinate (Toprol Xl) 150 mg DAILY PO ; Start 09/01/17 at 09:00; Stop 09/01/17 at 09:00; Status DC Metoprolol Tartrate (Lopressor) 50 mg ONCE ONCE PO ; Start 08/31/17 at 12:40; Stop 08/31/17 at 12:41; Status DC Diltiazem HCl 125 mg/Sodium Chloride 125 ml @ 5 mls/hr TITRATE PRN IV Tachycardia Last administered on 08/31/17 12:00; Start 08/31/17 at 11:15; Status Future Hold Aspirin (Ecotrin Ec) 81 mg DAILY PO Last administered on 09/02/17 09:00; Start 09/01/17 at 09:00 Apixaban (Eliquis) 5 mg BID PO Last administered on 09/02/17 20:34; Start 08/31/17 at 15:00 Metoprolol Succinate (Toprol Xl) 100 mg DAILY PO Last administered on 09:00; Start 09/01/17 at 09:00; Status Future Hold Sertraline HCl (Zoloft) 100 mg DAILY PO ; Start 09/03/17 at 09:00 A/P Problem List: (1) Chest pain ICD Code: R07.9 - Chest pain, unspecified (2) Atrial fibrillation ICD Code: I48.91 - Unspecified atrial fibrillation Assessment and Plan A/P CP with typical and atypical features with history of CAD status post [place]. Ruled out for [place] by cardiac enzymes. Stress test is abnormal as noted. Symptoms resolved. Cardiology recommended medical management with risk factor modification. Continue aspirin, Toprol, sublingual nitroglycerin and statin- imdur was added.f/u with cardiology as outpatient. New onset A. fib with RVR. High [id number] score of 5. Unremarkable Echocardiogram. continue metoprolol; however will decrease the dose to 25 mg po daily considering the episode of bradycardia yesterday. Agrees with Eliquis Negative Doppler sonogram of the lower extremities for DVT. Also negative CTA. dizziness/ with low-normal BP's- improved- will further decrease lopressor to 25 mg po daily- no orthostatic BP- Anxiety. continue home meds- f/u as outpatient. UTI which is currently being treated. Continue ciprofloxacin Diabetes mellitus. Monitor fingersticks and sliding scale coverage Passed walk test COPD- with no exacerbation- albuterol as needed- f/u as outpatient- Patient also requesting a home health care PT DVT prophylaxis with Eliquis Discharge Planning dc home with [facility] later this afternoon if HR and BP stable. see med list. f/u; pcp and cardiology. d/w the patient. d/w the RN. time spent 32 min. Problem Qualifiers (1) Chest pain: Qualified Codes: R07.9 - Chest pain, unspecified Simon Calzada MD Sep 03, 2017 08:19
--- NOTE | 2017-09-03 08:24 | HHI.FF ---
Face to Face Verification Diagnosis: (1) Atrial fibrillation Physical Therapy Order: Evaluate and Treat Home Health Nursing Order: Medical education Signs/symptoms of disease process Medication education-adverse effect Nursing assessment with vital signs [employer] Inspector Order: To Evaluate: Living conditions/environment, Support services I have seen patient Noni Martin on 09/03/17. My clinical findings support the need for the requested home health care services because: Ltd mobility - disease progression I certify that my clinical findings support that this patient is homebound because: Poor cardiac reserve Simon Calzada MD Sep 03, 2017 08:24
[2017-09-03] MEDS ORDERED: METO25TA6 PO ×2 (08:26)
[2017-09-03] MEDS ORDERED: ZOLO100T PO ×2 (08:26)
[2017-09-03] MEDS: SODIUM CHLORIDE 0.9% FLUSH 10 ML FLUSH IV FLUSH SCH ×2 (09:00)
[2017-09-03] MEDS ORDERED: SERTRALINE HCL 100 MG TAB PO SCH ×2 (09:00)
[2017-09-03] MEDS ORDERED: METOPROLOL SUCCINATE 25 MG EXTENDED RELEASE TAB PO SCH ×2 (09:00)
[2017-09-03 09:08] VITALS: BP 130/89; PULSE 70; RESP 18; TEMP 98.2; O2SAT 94
[2017-09-03] MEDS: CIPROFLOXACIN 500 MG TAB PO SCH ×2 (09:50)
[2017-09-03 09:55] VITALS: O2SAT 95
[2017-09-03] MEDS: LACTOBACILLUS ACIDOPHILUS TAB PO SCH ×4 (09:55→12:56)
[2017-09-03] MEDS: LEVOTHYROXINE SODIUM 150 MCG TAB PO SCH ×2 (09:55)
[2017-09-03] MEDS: FUROSEMIDE 20 MG TAB PO SCH ×2 (09:56)
[2017-09-03] MEDS: ASPIRIN EC 81 MG TABEC PO SCH ×2 (09:58)
[2017-09-03] MEDS: APIXABAN 5 MG TABLET PO SCH ×2 (10:00)
[2017-09-03 12:12] VITALS: BP 120/70; PULSE 73; RESP 18; TEMP 98.2; O2SAT 96
[2017-09-03 12:57] VITALS: PULSE 74
== END 2017-09-03 14:00 | disposition home or self-care (01) | DRG 309 ==
LOC: NEDDLT 16:56 → N04A 17:06
PROVIDERS: ADMIT Internal Medicine; ATTEND Internal Medicine
DX: I48.91 Unspecified atrial fibrillation (principal); N39.0 Urinary tract infection, site not specified; J44.9 Chronic obstructive pulmonary disease, unspecified; I10 Essential (primary) hypertension; R07.89 Other chest pain; I25.2 Old myocardial infarction; I25.10 Atherosclerotic heart disease of native coronary artery without angina pectoris; R42 Dizziness and giddiness; F41.9 Anxiety disorder, unspecified; E11.9 Type 2 diabetes mellitus without complications; M06.9 Rheumatoid arthritis, unspecified; G47.00 Insomnia, unspecified; M79.604 Pain in right leg; M79.605 Pain in left leg; M25.472 Effusion, left ankle; Z85.850 Personal history of malignant neoplasm of thyroid; E89.0 Postprocedural hypothyroidism; Z86.73 Personal history of transient ischemic attack (TIA), and cerebral infarction without residual deficits; E66.9 Obesity, unspecified; Z68.38 Body mass index [BMI] 38.0-38.9, adult; R19.7 Diarrhea, unspecified; R11.2 Nausea with vomiting, unspecified; E78.5 Hyperlipidemia, unspecified
CPT/HCPCS: 71010; 71275; 76937; 78452; 80048; 80053; 80061; 80076; 82550; 82552; 82948; 83690; 83735; 84443; 84484; 85025; 85379; 85610; 85730; 93005; 93017; 93306; 93970; 94620; 96374; 96375; 96376; A9502; J1644; J1650; J2270; J2405; J2785; J7030; Q9967

== ENCOUNTER 2018-06-26 11:19 | Inpatient (IN) ==
[2018-06-26] MEDS ORDERED: Acetaminophen 325 MG Tablet PO PRN (14:41)
[2018-06-26] MEDS ORDERED: Bisacodyl 10 MG Supp RECTAL PRN (14:41)
[2018-06-26] MEDS ORDERED: Vancomycin Consult Pharmacy OTHER PRN (17:46)
[2018-06-26] MEDS ORDERED: Morphine Sulfate Inj 8 MG/ML Vial IV.PUSH PRN (17:53)
--- NOTE | 2018-06-26 17:58 | P.HP ---
History of Present Illness Service: Hospitalist Primary Care Physician: Ciara Quarles Chief Complaint: Left breast pain History of Present Illness: Ms. Martin is a pleasant 68-year-old female with history of atrial fibrillation, congestive heart failure, hypothyroidism who presents to the emergency department due to worsening left breast pain and swelling as well as redness that started after she had a breast biopsy on 06/20/2018. Patient underwent a left breast biopsy on 06/20/2018 at [facility] due to a left breast mass. After she went home she started noticing swelling and tenderness of her left breast. She went to her primary care physician and apparently she was given some sort of intramuscular antibiotics which did not help her symptoms. She continued to have worsening redness, swelling and tenderness which prompted her to seek medical attention today. She denies any chest pain, shortness of breath, fever chills. Denies any changes in bowel or bladder habits. Family history: Patient was adopted and thus family history could not be obtained. Inpatient Certification: I certify that the inpatient services were ordered in accordance with Medicare regulations governing the order. This includes certification that hospital inpatient services are reasonable and necessary and in the case of services not specified as inpatient-only under 42 CFR 419.22(n), that they are appropriately provided as inpatient services in accordance to with the 2-midnight benchmark under 43 CFR 412.3(e) Estimated Total Length of Stay (Days): 3 Plans for Post Hospital Care: Home Review of Systems All other systems reviewed negative except as stated in HPI PMFSH - History History Provided By: Patient - Medical History Medical History: Medical History (Last Updated 06/26/18 @ 12:02 by Bushra Bruno RN) COPD (chronic obstructive pulmonary disease) Diabetes Fibromyalgia Ovarian cancer Rheumatoid arthritis Thyroid ca - Surgical History Surgical History: Surgical History (Last Updated 06/26/18 @ 12:02 by Bushra Bruno RN) H/O thyroidectomy - Tobacco History Second Hand Smoke Exposure: No Smoking Status: Never smoker - Alcohol History How Often Do You Have a Drink Containing Alcohol: Never - Substance Use History Substance History: No History of Abuse Medications and Allergies Active Medications: Active Medications Acetaminophen (Tylenol) 650 mg PO Q4H PRN PRN Reason: Headache, fever, pain 1-5 Al Hydroxide/Mg Hydroxide (Milk Of Magnesia Liq) 30 ml PO Q12H PRN PRN Reason: Mild Constipation Atorvastatin Calcium (Lipitor) 40 mg PO HS [facility] Bisacodyl (Dulcolax Supp) 10 mg RECTAL DAILY PRN PRN Reason: SEVERE CONSITIPATION Buspirone HCl (Buspar) 5 mg PO BID [facility] Piperacillin/Tazobactam/Dextrose (Zosyn 4.5 Gm Premix) 4.5 gm in 100 mls @ 200 mls/hr IV.SIG Q8H NUZHAT Lactulose (Lactulose Liq) 30 ml PO DAILY PRN PRN Reason: SEVERE CONSITIPATION Levothyroxine Sodium (Synthroid) 125 mcg PO DAILY@0600 [facility] Metoprolol Tartrate (Lopressor) 50 mg PO BID [facility] Ondansetron HCl (Zofran Inj) 4 mg IV.PUSH Q6H PRN PRN Reason: NAUSEA OR VOMITING Pantoprazole Sodium (Protonix) 40 mg PO DAILY [facility] Pharmacy Profile Note (Vancomycin Consult Pharmacy) 1 each OTHER UNSCH PRN PRN Reason: Pharmacy to dose Sennosides (Senokot) 17.2 mg PO Q12H PRN PRN Reason: Moderate Constipation Sertraline HCl (Zoloft) 100 mg PO DAILY [facility] Allergies Allergy/AdvReac Type Severity Reaction Status Date / Time albuterol Allergy Intermediate Hives; Verified 06/26/18 11:36 rapid heart rate diphenhydramine AdvReac Severe GENERALIZED Verified 06/26/18 11:36 HIVES , RAPID HEART RATE, SWOLLEN AND THROAT Home Medications Medication Instructions Recorded Confirmed Type apixaban [Eliquis] 5 mg PO BID 06/26/18 06/26/18 History levothyroxine 125 mcg PO DAILY 06/26/18 06/26/18 History metformin 06/26/18 History metoprolol tartrate [Lopressor] 100 mg PO BID 06/26/18 06/26/18 History omeprazole 20 mg PO DAILY 06/26/18 06/26/18 History Exam Vital signs: Vital Signs 06/26/18 17:03 Temperature 98.0 F Pulse Rate 83 Respiratory Rate 17 Blood Pressure 144/77 H Pulse Oximetry 94 L Intake & Output 06/25/18 06/26/18 06/26/18 18:59 06:59 18:59 Weight 91.1 kg Narrative: GENERAL: This is a well-nourished, well-developed patient, in no apparent distress. SKIN: No rashes, ecchymoses or lesions. Warm and dry. Left breast is exquisitely tender to palpation and there is a large induration as well as erythematous changes. No drainage noted. HEAD: Atraumatic. Normocephalic. No temporal or scalp tenderness. EYES: Pupils equal round and reactive. No injection or drainage. ENT: Nose without bleeding, purulent drainage or septal hematoma. Airway patent. NECK: Trachea midline. No lymphadenopathy. Supple, nontender, no meningeal signs. CARDIOVASCULAR: Regular rate and rhythm without murmurs, gallops, or rubs. No JVD. RESPIRATORY: Clear to auscultation. Breath sounds equal bilaterally. No wheezes , rales, or rhonchi. GASTROINTESTINAL: Abdomen soft, non-tender, nondistended. No guarding. MUSCULOSKELETAL: Extremities without clubbing, cyanosis, or edema. NEUROLOGICAL: Awake and alert. Cranial nerves II through XII intact. No focal neurological deficits. Normal speech. Results - Labs CBC & Chem 7: 06/26/18 18:24 - Imaging Ultrasound of left breast Findings consistent with cellulitis in the recently biopsied 6:00 subareolar region with a 1 cm subcutaneous anechoic collection at the 1:00 position which likely reflects resolving hematoma. However, developing abscess cannot be entirely excluded. This lesion is too small for percutaneous drainage at this time. May consider repeat evaluation following appropriate course of antibiotic therapy. Caprini VTE Risk Assessment Caprini VTE Risk Assessment: Moderate/High Risk (score >= 2) Caprini Risk Assessment Model: Point Value = 1 Point Value = 2 Point Value = 3 Point Value = 5 Age 41-60 Minor surgery BMI > 25 kg/m2 Swollen legs Varicose veins or History of unexplained or recurrent spontaneous Oral contraceptives or hormone replacement Sepsis (< 1 month) Serious lung disease, including pneumonia (< 1 month) Abnormal pulmonary function Acute myocardial infarction Congestive heart failure (< 1 month) History of inflammatory bowel disease Medical patient at bed rest Age 61-74 Arthroscopic surgery Major open surgery (> 45 min) Laparoscopic surgery (> 45 min) Malignancy Confined to bed (> 72 hours) Immobilizing plaster cast Central venous access Age >= 75 History of VTE Family history of VTE Factor V Leiden Prothrombin [id number] Lupus anticoagulant Anticardiolipin antibodies Elevated serum homocysteine Heparin-induced thrombocytopenia Other congenital or acquired thrombophilia Stroke (< 1 month) Elective arthroplasty Hip, pelvis, or leg fracture Acute spinal cord injury (< 1 month) Prophylaxis Regimen: Total Risk Factor Score Risk Level Prophylaxis Regimen 0-1 Low Early ambulation 2 Moderate Order ONE of the following: *Sequential Compression Device (SCD) *Heparin 5000 units SQ BID 3-4 Higher Order ONE of the following medications: *Heparin 5000 units SQ TID *Enoxaparin/Lovenox 40 mg SQ daily (WT < 150 kg, CrCl > 30 mL/min) *Enoxaparin/Lovenox 30 mg SQ daily (WT < 150 kg, CrCl > 10-29 mL/min) *Enoxaparin/Lovenox 30 mg SQ BID (WT < 150 kg, CrCl > 30 mL/min) AND/OR *Sequential Compression Device (SCD) 5 or more Highest Order ONE of the following medications: *Heparin 5000 units SQ TID (Preferred with Epidurals) *Enoxaparin/Lovenox 40 mg SQ daily (WT < 150 kg, CrCl > 30 mL/min) *Enoxaparin/Lovenox 30 mg SQ daily (WT < 150 kg, CrCl > 10-29 mL/min) *Enoxaparin/Lovenox 30 mg SQ BID (WT < 150 kg, CrCl > 30 mL/min) AND *Sequential Compression Device (SCD) Assessment and Plan - Plan Ms. Martin is a pleasant 68-year-old female who was admitted to the hospital due to worsening tenderness, swelling and redness of her left breast that started after she had biopsy of a mass on 06/20/2018. She failed outpatient therapy given by her primary care physician. Left Breast cellulitis Possible left breast hematoma Possible left breast abscess - Will start patient on Vancomycin and Zosyn since she failed outpatient therapy. - Will place a general surgery consult. May need surgical I&D. - Will keep pt NPO midnight in case surgical intervention required. - [place] for pain. Atrial fibrillation Hypothyroidism Hx of Anxiety/Depression - Continue home meds Beta chris, lipitor, Sertraline, Bsupar. Full code. Hold Apixaban for now.
[2018-06-26] MEDS: Metoprolol Tartrate 50 MG Tablet PO SCH (20:27)
[2018-06-26 20:44] LABS: Bilirubin,Urine Negative (Negative); Clarity,Urine Clear (Clear); Color,Urine Yellow (Yellw/Straw); Glucose,Urine (UA) Negative (Negative); Leukocyte Esterase,Urine Negative (Negative); Nitrite,Urine Negative (Negative); PH,Urine 7.5 (5.0-8.5); Specific Gravity,Urine 1.015 (1.002-1.035); Urobilinogen,Urine 0.2 mg/dL (Less than 2)
[2018-06-26 20:48] LABS: Squamous Epithelial Cell,Urine 0-5 /hpf (0-5)
[2018-06-26] MEDS: Morphine Inj 4 MG/ML Vial IV.PUSH PRN (21:30)
[2018-06-26] MEDS: Piperacil/Tazo 4.5 GM Premix 4.5 GM/100 ML BAG IV.SIG SCH (21:30)
[2018-06-26] MEDS: Melatonin 5 MG Tablet PO PRN (23:09)
[2018-06-26] MEDS: Vancomycin Inj 1,000 MG in Sodium Chlor 0.9% Inj 250 ML IV.SIG SCH (23:09)
[2018-06-27] MEDS: Piperacil/Tazo 4.5 GM Premix 4.5 GM/100 ML BAG IV.SIG SCH ×3 (04:20→20:16)
[2018-06-27] MEDS: Levothyroxine 125 MCG Tablet PO SCH (05:22)
[2018-06-27] MEDS: Morphine Inj 4 MG/ML Vial IV.PUSH PRN (05:22)
[2018-06-27 06:14] LABS: Baso % (Auto) 0.3 % (0.0-2.0); Eos # (Auto) 0.4 th/mm3 (0.0-0.4); Eos % (Auto) 5.6 % (0.0-4.0); Hemoglobin 9.9 gm/dL (11.6-15.3); Lymph # (Auto) 1.6 th/mm3 (1.0-4.8); Lymph % (Auto) 21.3 % (9.0-44.0); Mean Corpuscular HGB Conc 34.3 % (32.0-36.0); Mean Corpuscular Hemoglobin 30.2 pg (27.0-34.0); Mean Platelet Volume 7.7 fL (7.0-11.0); Mono # (Auto) 0.4 th/mm3 (0.0-0.9); Mono % (Auto) 5.3 % (0.0-8.0); Neut # (Auto) 5.1 th/mm3 (1.8-7.7); Neut % (Auto) 67.5 % (16.0-70.0); Platelet Count 268 th/mm3 (150-450); Red Cell Distribution Width 16.2 % (11.6-17.2); White Blood Count 7.5 th/mm3 (4.0-11.0)
[2018-06-27] MEDS: Metoprolol Tartrate 50 MG Tablet PO SCH ×2 (08:30→20:16)
[2018-06-27] MEDS: Sertraline 100 MG Tablet PO SCH (08:31)
--- NOTE | 2018-06-27 09:22 | P.CONGS ---
[facility] Gen Surgery Consult Note Consult date: 06/27/18 Reason for consult: other (Breast abscess vs hematoma) Requesting physician: Kana Espinal Narrative: CONSULTATION NOTE FOR SURGICAL ATTENDING, DR. VINCE EDEN This is a 68-year-old female with a past medical history of atrial fibrillation on Eliquis, congestive heart failure, hypothyroidism, thyroid cancer, ovarian cancer and fibromyalgia. The patient reports that she had a left breast biopsy at [facility] on June 20. She was instructed to stop her Eliquis the day before her breast biopsy and restart it the following day. Since then, she has had extensive bruising over her left breast with tightness and pain. She reported to her primary care physician her symptoms and she was started on the oral antibiotic. She has seen no improvement since starting the antibiotic. She denies any fevers or chills. An ultrasound of the breast was obtained which shows cellulitis and a questionable hematoma versus a developing abscess. The patient's white blood cell count is normal. The patient's hemoglobin is low at 9.9. She reports she has never been anemic. A General Surgery consultation has been requested. Review of Systems Constitutional: Denies chills, Denies fatigue, Denies fever(s) Eyes: Denies blurry vision Ears, Nose, Mouth, and Throat: Denies headache(s) Cardiovascular: Denies chest pain, Denies chest pain at rest, Denies chest pain with activity Respiratory: Denies chest congestion, Denies cough Gastrointestinal: Denies abdominal pain, Denies nausea, Denies vomiting Genitourinary: Denies pelvic pain Musculoskeletal: Denies abnormal walking Skin/Breast: Reports breast swelling, Reports breast skin changes, Reports breast pain Neurologic: Denies confusion Psychiatric: Denies anxiety, Denies depression Endocrine: Denies cold intolerance, Denies heat intolerance Hematologic/Lymphatic: Denies easy bleeding Allergic/Immunologic: Denies GI upset with certain foods PMFSH - History History Provided By: Patient - Medical History Medical History: Medical History (Last Reviewed 06/27/18 @ 18:03 by Vince Eden MD) Atrial fibrillation COPD (chronic obstructive pulmonary disease) Diabetes Fibromyalgia Ovarian cancer Rheumatoid arthritis Thyroid ca - Surgical History Surgical History: Surgical History (Last Reviewed 06/27/18 @ 18:03 by Vince Eden MD) History of left breast biopsy H/O thyroidectomy - Tobacco History Second Hand Smoke Exposure: No Smoking Status: Never smoker - Alcohol History How Often Do You Have a Drink Containing Alcohol: Never - Substance Use History Substance History: No History of Abuse - Travel History Recent Travel in the [place] Within the Last 8 Weeks: No Recent Travel Out of the Country Within the Last 8 Weeks: No - Immunization History Hx Influenza Vaccine This Season: No Medications and Allergies Allergies Allergy/AdvReac Type Severity Reaction Status Date / Time albuterol Allergy Intermediate Hives; Verified 06/26/18 11:36 rapid heart rate diphenhydramine AdvReac Severe GENERALIZED Verified 06/26/18 11:36 HIVES , RAPID HEART RATE, SWOLLEN AND THROAT Home Medications Medication Instructions Recorded Confirmed Type apixaban [Eliquis] 5 mg PO BID 06/26/18 06/26/18 History levothyroxine 125 mcg PO DAILY 06/26/18 06/26/18 History metformin 06/26/18 History metoprolol tartrate [Lopressor] 100 mg PO BID 06/26/18 06/26/18 History omeprazole 20 mg PO DAILY 06/26/18 06/26/18 History acyclovir 800 mg PO BID 06/27/18 06/27/18 History apixaban [Eliquis] 5 mg PO BID 06/27/18 06/27/18 History arnica TOPICAL BID 06/27/18 History atorvastatin 40 mg PO HS 06/27/18 06/27/18 History bupropion HCl 100 mg PO DAILY 06/27/18 06/27/18 History buspirone 10 mg PO BID 06/27/18 06/27/18 History clotrimazole-betamethasone BID 06/27/18 History escitalopram oxalate 20 mg PO DAILY 06/27/18 06/27/18 History famotidine 20 mg PO HS 06/27/18 06/27/18 History furosemide 20 mg PO DAILY 06/27/18 06/27/18 History gabapentin 300 mg PO TID 06/27/18 06/27/18 History hydrocodone-acetaminophen 1 tab PO Q12H PRN 06/27/18 06/27/18 History isosorbide mononitrate 30 mg PO DAILY 06/27/18 06/27/18 History levothyroxine 125 mcg PO DAILY 06/27/18 06/27/18 History losartan 25 mg PO DAILY 06/27/18 06/27/18 History metoprolol tartrate 25 mg PO BID 06/27/18 06/27/18 History ondansetron HCl [Zofran] 8 mg PO BID PRN 06/27/18 06/27/18 History potassium chloride 20 meq PO DAILY 06/27/18 06/27/18 History sertraline 100 mg PO DAILY 06/27/18 06/27/18 History umeclidinium-vilanterol [Anoro 1 inh INHALATION Q24H 06/27/18 06/27/18 History Ellipta] zolpidem 5 mg PO HS 06/27/18 06/27/18 History Active Medications: Active Medications Acetaminophen (Tylenol) 650 mg PO Q4H PRN PRN Reason: Headache, fever, pain 1-4 Hydrocodone Bitart/Acetaminophen ([place] 10/325) 1 tab PO Q4H PRN PRN Reason: Pain 5-10 Last Admin: 06/27/18 08:28 Dose: 1 tab Al Hydroxide/Mg Hydroxide (Milk Of Magnesia Liq) 30 ml PO Q12H PRN PRN Reason: Mild Constipation Last Admin: 06/26/18 20:27 Dose: 30 ml Atorvastatin Calcium (Lipitor) 40 mg PO HS [facility] Last Admin: 06/26/18 20:27 Dose: 40 mg Bisacodyl (Dulcolax Supp) 10 mg RECTAL DAILY PRN PRN Reason: SEVERE CONSITIPATION Buspirone HCl (Buspar) 5 mg PO BID [facility] Last Admin: 06/27/18 08:31 Dose: 5 mg Piperacillin/Tazobactam/Dextrose (Zosyn 4.5 Gm Premix) 4.5 gm in 100 mls @ 200 mls/hr IV.SIG Q8H [facility] Last Infusion: 06/27/18 04:55 Dose: Infused Vancomycin HCl 1,000 mg/ (Sodium Chloride) 250 mls @ 250 mls/hr IV.SIG Q18H [facility] Last Infusion: 06/27/18 00:18 Dose: Infused Lactulose (Lactulose Liq) 30 ml PO DAILY PRN PRN Reason: SEVERE CONSITIPATION Levothyroxine Sodium (Synthroid) 125 mcg PO DAILY@0600 [facility] Last Admin: 06/27/18 05:22 Dose: 125 mcg Melatonin (Melatonin) 5 mg PO PRN PRN Reason: INSOMNIA Last Admin: 06/26/18 23:09 Dose: 5 mg Metoprolol Tartrate (Lopressor) 50 mg PO BID [facility] Last Admin: 06/27/18 08:30 Dose: 50 mg Miscellaneous Information ([facility] Ordered Lab Info) 0 each OTHER ONCE ONE Stop: 06/29/18 05:46 Morphine Sulfate (Morphine Inj) 5 mg IV.PUSH Q4H PRN PRN Reason: BREAKTHROUGH PAIN Last Admin: 06/27/18 05:22 Dose: 5 mg Ondansetron HCl (Zofran Inj) 4 mg IV.PUSH Q6H PRN PRN Reason: NAUSEA OR VOMITING Last Admin: 06/26/18 19:16 Dose: 4 mg Pantoprazole Sodium (Protonix) 40 mg PO DAILY [facility] Last Admin: 06/27/18 08:31 Dose: 40 mg Pharmacy Profile Note (Vancomycin Consult Pharmacy) 1 each OTHER UNSCH PRN PRN Reason: Pharmacy to dose Sennosides (Senokot) 17.2 mg PO Q12H PRN PRN Reason: Moderate Constipation Sertraline HCl (Zoloft) 100 mg PO DAILY [facility] Last Admin: 08/28/18 08:31 Dose: 100 mg Exam Vital signs: Vital Signs 06/26/18 17:03 06/26/18 20:00 06/26/18 22:45 Temperature 98.0 F 97.4 F L Pulse Rate 83 83 73 Respiratory Rate 17 16 Blood Pressure 144/77 H 139/70 Pulse Oximetry 94 L 96 06/27/18 00:00 06/27/18 08:00 06/27/18 08:28 Temperature 97.1 F L 97.8 F Pulse Rate 68 72 Respiratory Rate 16 20 18 Blood Pressure 101/52 L 125/70 Pulse Oximetry 93 L 95 Intake & Output 06/26/18 06/27/18 06/27/18 18:59 06:59 18:59 Intake Total 480 / 480 650 / 650 240 / 240 Balance 480 / 480 650 / 650 240 / 240 Weight 91.4 kg 91.4 kg Intake: IV 450 / 450 Zosyn 4.5 GM Premix 4.5 gm In 200 / 200 100 ml @ 200 mls/hr IV.SIG Q8H [facility] Rx#:[id number] Vancomycin Inj 1,000 MG In NS 250 / 250 Inj 250 ML @ 250 mls/hr IV.SIG Q18H [facility] Rx#:[id number] Oral 480 / 480 200 / 200 240 / 240 Other: # Voids 2 2 Date of Last Bowel Movement 06/24/18 # Bowel Movements 0 Weight On Admission 91.4 kg Narrative: GENERAL: This is a very pleasant 68-year-old female resting in bed in no acute distress. SKIN: Intact. BREAST: RIGHT breast normal-- no ecchymosis; no tenderness. LEFT breast: 6 o' clock position prior breast bx site with healing scab. Just inferior to that is a area where it appears the skin has opened up but now healing; LEFT breast has mild ecchymosis; tender to palpation; hard from 6 o'clock position to 9 o' clock position. HEAD: Atraumatic. Normocephalic. EYES: Pupils equal and round. No scleral icterus. No injection or drainage. ENT: No nasal bleeding or discharge. Mucous membranes pink and moist. NECK: Trachea midline. CARDIOVASCULAR: Regular rate and rhythm. RESPIRATORY: No accessory muscle use. Clear to auscultation. Breath sounds equal bilaterally. GASTROINTESTINAL: Abdomen soft, non-tender, nondistended. MUSCULOSKELETAL: Extremities without clubbing, cyanosis, or edema. No obvious deformities. NEUROLOGICAL: Awake and alert. No obvious cranial nerve deficits. Motor grossly within normal limits. Five out of 5 muscle strength in the arms and legs. Normal speech. PSYCHIATRIC: Appropriate mood and affect; insight and judgment normal. Left breast has ecchymosis and mild erythema from a previous biopsy mild cellulitis no palpable drainable abscess Results - Labs 06/27/18 05:20 06/27/18 05:20 Abnormal lab results 06/26/18 06/27/18 06/27/18 Range/Units 18:24 05:20 05:20 RBC 3.30 L (4.00-5.30) mil/mm3 Hgb 9.9 L (11.6-15.3) gm/dL Hct 29.0 L (35.0-46.0) % Eos % (Auto) 5.6 H (0.0-4.0) % Estimated GFR 59 L 56 L (>89) mL/min Diabetes panel 06/26/18 06/27/18 Range/Units 18:24 05:20 Creatinine 0.94 0.98 (0.50-1.00) mg/dL Pituitary panel 06/26/18 06/27/18 Range/Units 18:24 05:20 Creatinine 0.94 0.98 (0.50-1.00) mg/dL Adrenal panel 06/26/18 06/27/18 Range/Units 18:24 05:20 Creatinine 0.94 0.98 (0.50-1.00) mg/dL All other labs normal. - Imaging Additional studies: Breast US Reviewed the ultrasound reports showing a hematoma/fluid collection/abscess 1 cm. Cellulitic response Assessment and Plan - Assessment (1) Cellulitis of left breast Code(s): N61.0 - Mastitis without abscess Status: Acute Plan: 68 year old female s/p breast biopsy on June 20 now with LEFT breast cellulitis ----with hematoma vs abscess -Continue Zosyn and Vancomycin -Will attempt management with antibiotics -Start diet -Will continue to monitor -Thank you for this consult; We will continue to follow - Plan Discussed Condition With: Dr. Karey Martin - Attending Attestation CONSULTATION NOTE FOR SURGICAL ATTENDING, DR. VINCE EDEN Discussed with Dr. Espinal Patient appears to have cellulitis of the breast which needs IV antibiotics. Okay to advance diet Okay to restart Eliquis I suspect IV antibiotics will assist tremendously with the treatment of her cellulitis I agree with above assessment and plan. The exam, history, and the medical decision-making described in the above note were completed with the assistance of the mid-level provider. I reviewed and agree with the findings presented. I attest that I had a [id number] encounter with the patient on the same day, and personally performed and documented my assessment and findings in the medical record. The following services were provided during this hospital visit: Chart data review, vital sign assessments/reviewing monitor data Review of consultations notes if present. Medication orders/review and/or management Ordering and/or reviewing lab tests Ordering and/or interpreting/reviewing x-rays and/or diagnostic studies Care of the patient and discussion of the patient with the care team Documentation time To help prompt me to consider important information that might be impacting today's encounter and assessment, Information from prior notes written by myself or my colleagues may have been "brought forward/copy and pasted" into today's note.
--- NOTE | 2018-06-27 09:48 | P.PN ---
Subjective Interval history: Follow up for left breast hematoma, cellulitis. Patient is currently doing well. No fever or chills. She continues to have left-sided breast pain. She is currently n.p.o. until surgery evaluated patient. Physical Exam Vital signs: Vital Signs 06/26/18 17:03 06/26/18 20:00 06/26/18 22:45 Temperature 98.0 F 97.4 F L Pulse Rate 83 83 73 Respiratory Rate 17 16 Blood Pressure 144/77 H 139/70 Pulse Oximetry 94 L 96 06/27/18 00:00 06/27/18 08:00 06/27/18 08:28 Temperature 97.1 F L 97.8 F Pulse Rate 68 72 Respiratory Rate 16 20 18 Blood Pressure 101/52 L 125/70 Pulse Oximetry 93 L 95 Intake & Output 06/26/18 06/27/18 06/27/18 18:59 06:59 18:59 Intake Total 480 / 480 650 / 650 240 / 240 Balance 480 / 480 650 / 650 240 / 240 Weight 91.4 kg 91.4 kg Intake: IV 450 / 450 Zosyn 4.5 GM Premix 4.5 gm In 200 / 200 100 ml @ 200 mls/hr IV.SIG Q8H [facility] Rx#:[id number] Vancomycin Inj 1,000 MG In NS 250 / 250 Inj 250 ML @ 250 mls/hr IV.SIG Q18H [facility] Rx#:[id number] Oral 480 / 480 200 / 200 240 / 240 Other: # Voids 2 2 Date of Last Bowel Movement 06/24/18 # Bowel Movements 0 Weight On Admission 91.4 kg Narrative: GENERAL: Alert, oriented 3, NAD. SKIN: Warm and dry. Large indurated and tender area over left breast. HEAD: Normocephalic. EYES: No scleral icterus. No injection or drainage. NECK: Supple, trachea midline. No JVD or lymphadenopathy. CARDIOVASCULAR: Regular rate and rhythm without murmurs, gallops, or rubs. RESPIRATORY: Breath sounds equal bilaterally. No accessory muscle use. GASTROINTESTINAL: Abdomen soft, non-tender, nondistended. MUSCULOSKELETAL: No cyanosis, or edema. BACK: Nontender without obvious deformity. No CVA tenderness. Results - Labs CBC & Chem 7: 06/27/18 05:20 06/27/18 05:20 Laboratory Results - last 24 hr 06/26/18 06/26/18 06/27/18 18:24 20:30 05:20 CBC w Diff Auto diff final WBC 7.5 RBC 3.30 L Hgb 9.9 L Hct 29.0 L MCV 88.0 MCH 30.2 MCHC 34.3 RDW 16.2 Plt Count 268 MPV 7.7 Neut % (Auto) 67.5 Lymph % (Auto) 21.3 [place] % (Auto) 5.3 Eos % (Auto) 5.6 H Baso % (Auto) 0.3 Neut # (Auto) 5.1 Lymph # (Auto) 1.6 [place] # (Auto) 0.4 Eos # (Auto) 0.4 Baso # (Auto) 0.0 WBC Differential . Differential Comment . Creatinine 0.94 Estimated GFR 59 L Urine Color Yellow Urine Clarity Clear Urine pH 7.5 Ur Specific [place] 1.015 Urine Protein Negative Urine Glucose (UA) Negative Urine Ketones Negative Urine Occult Blood Negative Urine Nitrate Negative Urine Bilirubin Negative Urine Urobilinogen 0.2 Ur Leukocyte Esterase Negative Ur Squamous Epith Cells 0-5 Micro UA Comment Culture not ind Ur Microscopic Review Microscopic reviewed Urine Culture Comments Culture not ind 06/27/18 05:20 CBC w Diff WBC RBC Hgb Hct MCV MCH MCHC RDW Plt Count MPV Neut % (Auto) Lymph % (Auto) [place] % (Auto) Eos % (Auto) Baso % (Auto) Neut # (Auto) Lymph # (Auto) [place] # (Auto) Eos # (Auto) Baso # (Auto) WBC Differential Differential Comment Creatinine 0.98 Estimated GFR 56 L Urine Color Urine Clarity Urine pH Ur Specific [place] Urine Protein Urine Glucose (UA) Urine Ketones Urine Occult Blood Urine Nitrate Urine Bilirubin Urine Urobilinogen Ur Leukocyte Esterase Ur Squamous Epith Cells Micro UA Comment Ur Microscopic Review Urine Culture Comments Assessment and Plan - Plan Ms. Martin is a pleasant 68-year-old female who was admitted to the hospital due to worsening tenderness, swelling and redness of her left breast that started after she had biopsy of a mass on 06/20/2018. She failed outpatient therapy given by her primary care physician. Left Breast cellulitis Possible left breast hematoma Possible left breast abscess - Continue Vancomycin and Zosyn since she failed outpatient therapy. - General surgery consulted. Currently NPO. - [place] for pain. Atrial fibrillation Hypothyroidism Hx of Anxiety/Depression - Continue home meds Beta chris, lipitor, Sertraline, Bsupar. Full code. Hold Apixaban for now.
[2018-06-27] MEDS: Vancomycin Inj 1,000 MG in Sodium Chlor 0.9% Inj 250 ML IV.SIG SCH (18:09)
[2018-06-27] MEDS: Melatonin 5 MG Tablet PO PRN (20:17)
[2018-06-28] MEDS: Piperacil/Tazo 4.5 GM Premix 4.5 GM/100 ML BAG IV.SIG SCH (04:07)
[2018-06-28] MEDS: Levothyroxine 125 MCG Tablet PO SCH (05:10)
[2018-06-28] MEDS: Sertraline 100 MG Tablet PO SCH (08:14)
[2018-06-28] MEDS: Metoprolol Tartrate 50 MG Tablet PO SCH (08:14)
[2018-06-28] MEDS ORDERED: Amoxicillin/Clavulanate 875/125 MG Tablet PO SCH (09:15)
--- NOTE | 2018-06-28 09:16 | P.DCO ---
- Physical Therapy Order: Evaluate and treat, Improve ambulation, Strength and gait training - Home Health Nursing Order: Medical education, Signs/symptoms of disease process, Medication education-adverse effect, Nursing assessment with vital signs - Certification I have seen patient Noni Martin on 06/28/18. My clinical findings support the need for the requested home health care services because: Limited mobility due to disease progression, Deconditioned with increased weakness, Limited ability to care for self I certify that my clinical findings support that this patient is homebound because: Post-op weakness (Patient recently had breast biopsy done. ), Unsafe to leave home unassisted, Unable to use public transportation
[2018-06-28] MEDS: Vancomycin Inj 1,000 MG in Sodium Chlor 0.9% Inj 250 ML IV.SIG SCH (11:28)
--- NOTE | 2018-06-28 12:53 | P.DS ---
Date of admission: 06/26/18 15:58 Primary care physician: Ciara Quarles Brief History from admission: Ms. Martin is a pleasant 68-year-old female with history of atrial fibrillation, congestive heart failure, hypothyroidism who presents to the emergency department due to worsening left breast pain and swelling as well as redness that started after she had a breast biopsy on 06/20/2018. Patient underwent a left breast biopsy on 06/20/2018 at [facility] due to a left breast mass. After she went home she started noticing swelling and tenderness of her left breast. She went to her primary care physician and apparently she was given some sort of intramuscular antibiotics which did not help her symptoms. She continued to have worsening redness, swelling and tenderness which prompted her to seek medical attention today. She denies any chest pain, shortness of breath, fever chills. Denies any changes in bowel or bladder habits. Family history: Patient was adopted and thus family history could not be obtained. DS: Medications - Discharge Medications Prescriptions: amoxicillin-pot clavulanate 1 tab PO Q12HR #28 tab sulfamethoxazole-trimethoprim 1 tab PO Q12HR #28 tab DS: Summary Hospital Course: Ms. Martin is a pleasant 68-year-old female who was admitted to the hospital due to worsening tenderness, swelling and redness of her left breast that started after she had biopsy of a mass on 06/20/2018. She failed outpatient therapy given by her primary care physician. She believes she received Levaquin IM. Patient was initially evaluated at [place] [facility] in [place]. Ultrasound showed possible resolving hematoma but a developing abscess could not be ruled out. Patient did not have any fever or leukocytosis. Empirically we started patient on vancomycin and Zosyn. General surgery was consulted for input. Patient clinically improved. After discussing with patient, we discharged patient home with Augmentin and Bactrim. Patient is strongly advised to follow-up with general surgery. Patient has pain medication at home and thus no new pain medication prescription was given. - Time Spent with Patient Total time spent providing and/or coordinating discharge services: Less than 30 minutes - Quality: VTE Deep Vein Thrombosis/Pulmonary Embolism Present on Admission: No Exam Vital signs: Vital Signs 06/27/18 16:40 06/27/18 18:16 06/27/18 20:00 Temperature 98.0 F Pulse Rate 85 Respiratory Rate 18 18 16 Blood Pressure 101/50 L Pulse Oximetry 91 L 06/28/18 00:00 06/28/18 08:00 06/28/18 12:15 Temperature 97.8 F 97.8 F Pulse Rate 75 64 Respiratory Rate 16 20 18 Blood Pressure 142/82 H 131/64 Pulse Oximetry 97 90 L Intake & Output 06/27/18 06/28/18 06/28/18 18:59 06:59 18:59 Intake Total 820 / 820 650 / 650 Output Total 300 / 300 Balance 520 / 520 650 / 650 Weight 91.4 kg Intake: IV 100 / 100 450 / 450 Zosyn 4.5 GM Premix 4.5 gm In 100 / 100 200 / 200 100 ml @ 200 mls/hr IV.SIG Q8H [facility] Rx#:[id number] Vancomycin Inj 1,000 MG In NS 250 / 250 Inj 250 ML @ 250 mls/hr IV.SIG Q18H [facility] Rx#:[id number] Oral 720 / 720 200 / 200 Output: Urine 300 / 300 Other: # Voids 2 Date of Last Bowel Movement 06/26/18 06/24/18 06/26/18 Results Procedures completed during hospitalization: None Discharge Plan - Discharge Disposition Patient Disposition: W/Home Health Service - Discharge Condition Condition: Good - Discharge Order Discharge Orders: Discharge Order (Routine); Ordered 06/28/18 Ordered By: Kana Espinal - Discharge Details Anticipated Discharge Date: 06/28/18 - Physicians Team Attending Provider: Kana Espinal Other Providers: Vince Eden MD ; Ana Perez - Rxs /Orders / Referrals /Forms Prescriptions: New amoxicillin-pot clavulanate 875-125 mg Tablet 1 tab PO Q12HR Qty: 28 RF: 0 sulfamethoxazole-trimethoprim 800-160 mg Tablet 1 tab PO Q12HR Qty: 28 RF: 0 Continue acyclovir 800 mg Tablet 800 mg PO BID apixaban [Eliquis] 5 mg Tablet 5 mg PO BID arnica 20 % Tincture Topical BID atorvastatin 40 mg Tablet 40 mg PO HS bupropion HCl 100 mg Tablet Extended Release 12 Hr 100 mg PO DAILY buspirone 10 mg Tablet 10 mg PO BID clotrimazole-betamethasone 1-0.05 % Cream BID escitalopram oxalate 20 mg Tablet 20 mg PO DAILY famotidine 20 mg Tablet 20 mg PO HS furosemide 20 mg Tablet 20 mg PO DAILY gabapentin 300 mg Capsule 300 mg PO TID hydrocodone-acetaminophen 10-325 mg Tablet 1 tab PO Q12H PRN (Reason: Pain) isosorbide mononitrate 30 mg Tablet Extended Release 24 Hr 30 mg PO DAILY levothyroxine 125 mcg Capsule 125 mcg PO DAILY levothyroxine 125 mcg Capsule 125 mcg PO DAILY losartan 25 mg Tablet 25 mg PO DAILY metformin 1,000 mg Tablet,Er Chad.Retention 24 Hr metoprolol tartrate 25 mg Tablet 25 mg PO BID metoprolol tartrate [Lopressor] 100 mg Tablet 100 mg PO BID omeprazole 10 mg Capsule,Delayed Release(Dr/Ec) 20 mg PO DAILY ondansetron HCl [Zofran] 8 mg Tablet 8 mg PO BID PRN (Reason: Nausea And Vomiting) potassium chloride 20 mEq Tablet Extended Release 20 meq PO DAILY sertraline 100 mg Tablet 100 mg PO DAILY umeclidinium-vilanterol [Anoro Ellipta] 62.5-25 mcg/actuation Blister With Device 1 inh INHALATION Q24H zolpidem 5 mg Tablet 5 mg PO HS Discontinued apixaban [Eliquis] 5 mg Tablet 5 mg PO BID Referrals: Ciara Quarles [Other] - See Instructions ( Please call the physician's office to book the appointment for follow up appt.) Vince Eden MD [Physician] - See Instructions (Follow up in 1-2 weeks. Please call the physician's office to book the appointment to be seen within 1-2 weeks. Call [phone]) - Discharge Instructions Patient Printed Instructions: Sulfamethoxazole/Trimethoprim (By mouth), Amoxicillin/Clavulanate Potassium (By mouth), Cellulitis (DC) - Post Discharge Care Plan Care Plan Goals: Please call the physician's office to book the appointment to be seen within []. Your Health Problems: Goals to Promote Your Health: * To prevent worsening of your condition * To maintain your health at the optimal level Directions to Meet Your Goals: * Take your medications as prescribed * Follow your dietary instruction * Follow activity as directed * Keep your appointments as scheduled * Take your immunizations and boosters as scheduled * If your symptoms worsen call your PCP * If no PCP go to Urgent Care or Emergency Room Smoking is dangerous to your health. Avoid second hand smoke. You may reach the 24-hour crisis hotline for domestic abuse at .
--- NOTE | 2018-06-28 13:53 | P.PNGS ---
Subjective Interval history: DAILY PROGRESS NOTE FOR SURGICAL ATTENDING, DR. ANTONIA SIDDIQI Doing well; no issues Physical Exam Vital signs: Vital Signs 06/27/18 16:40 06/27/18 18:16 06/27/18 20:00 Temperature 98.0 F Pulse Rate 85 Respiratory Rate 18 18 16 Blood Pressure 101/50 L Pulse Oximetry 91 L 06/28/18 00:00 06/28/18 08:00 06/28/18 12:15 Temperature 97.8 F 97.8 F Pulse Rate 75 64 Respiratory Rate 16 20 18 Blood Pressure 142/82 H 131/64 Pulse Oximetry 97 90 L Intake & Output 06/27/18 06/28/18 06/28/18 18:59 06:59 18:59 Intake Total 820 / 820 650 / 650 Output Total 300 / 300 Balance 520 / 520 650 / 650 Weight 91.4 kg Intake: IV 100 / 100 450 / 450 Zosyn 4.5 GM Premix 4.5 gm In 100 / 100 200 / 200 100 ml @ 200 mls/hr IV.SIG Q8H [facility] Rx#:[id number] Vancomycin Inj 1,000 MG In NS 250 / 250 Inj 250 ML @ 250 mls/hr IV.SIG Q18H [facility] Rx#:[id number] Oral 720 / 720 200 / 200 Output: Urine 300 / 300 Other: # Voids 2 Date of Last Bowel Movement 06/26/18 06/24/18 06/26/18 Narrative: Alert and awake LEFT breast--- continues to have ecchymosis; less indurated; tender Assessment and Plan - Assessment (1) Cellulitis of left breast Code(s): N61.0 - Mastitis without abscess Status: Acute Plan: 68 year old female s/p breast biopsy on June 20 now with LEFT breast cellulitis ----with hematoma vs abscess -Continue Zosyn and Vancomycin -Will attempt management with antibiotics -Tolerating cardiac diet -Okay to restart Lisa - Attending Attestation NOTE FOR SURGICAL ATTENDING, DR. ANTONIA SIDDIQI I agree with above assessment and plan. The exam, history, and the medical decision-making described in the above note were completed with the assistance of the mid-level provider. I reviewed and agree with the findings presented. The following services were provided during this hospital visit: Chart data review, vital sign assessments/reviewing monitor data Review of consultations notes if present. Medication orders/review and/or management Ordering and/or reviewing lab tests Ordering and/or interpreting/reviewing x-rays and/or diagnostic studies Care of the patient and discussion of the patient with the care team Documentation time To help prompt me to consider important information that might be impacting today's encounter and assessment, Information from prior notes written by myself or my colleagues may have been "brought forward/copy and pasted" into today's note.
[2018-06-29] MEDS ORDERED: VANCOMYCIN TROUGH OTHER ONE (05:45)
== END 2018-06-28 16:29 | disposition home health service (06) ==
LOC: PHEDDLT 15:57 → PH3 15:58
PROVIDERS: ADMIT Hospitalist; ATTEND Hospitalist